=== PATIENT | female | born 1975 | race Caucasian/White ===

== ENCOUNTER 2020-08-08 10:21 | Emergency (ER) | payer OTHER, SELFPAY ==
[2020-08-08 10:29] VITALS: BP 139/78; PULSE 78; RESP 18; TEMP 36.6; O2SAT 98
--- NOTE | 2020-08-08 10:52 | ED.ABDPAIN ---
HPI - Abdominal Pain General Chief Complaint: Abdominal Pain Stated Complaint: stomach pain Time Seen by Provider: 08/08/20 10:43 Source: patient and RN notes reviewed Mode of arrival: ambulatory Limitations: no limitations History of Present Illness HPI narrative: Patient presents today complaining of history of intermittent mid to upper abdominal pain, occasionally radiating into the back. Pain is worse after eating and is sometimes accompanied by nausea after eating. She denies vomiting, diarrhea, constipation. Denies any urinary symptoms, recent fever, any additional symptoms. Currently rates her pain 04/27. MD elicited complaint: abdominal pain Related Data Home Medications Medication Instructions Recorded Confirmed No Home Medications 08/08/20 08/08/20 Allergies Allergy/AdvReac Type Severity Reaction Status Date / Time No Known Allergies Allergy Verified 07/29/13 10:32 Review of Systems Review of Systems: Narrative: CONSTITUTIONAL: Denies body aches, fever, chills, or sweats. EYES: Denies visual changes, redness, or discharge. ENT: Denies rhinorrhea, congestion, sore throat, or otalgia. CARDIOVASCULAR: Denies chest pain, palpitations, or edema. RESPIRATORY: Denies cough or dyspnea. GASTROINTESTINAL: Denies vomiting, or diarrhea. + Nausea, abdominal pain GENITOURINARY: Denies dysuria or hematuria. SKIN: Denies rash, itching, or wounds. MUSCULOSKELETAL: Denies back pain, joint pain, or myalgia. NEUROLOGIC: Denies headache, numbness, tingling, or weakness. PSYCH: Denies depression or anxiety. PMFSH Social History Social History Alcohol intake: never Gender identity (if verbalized by the patient): Female Comments At time of signature, I have reviewed and agree with nursing past medical, surgical, social and family history unless otherwise noted. Please see nursing chart for further information. There is no relevant family history pertinent to the presenting complaint Exam Narrative: Exam Narrative: GENERAL: Well-appearing, well-nourished, and in no acute distress. HEAD: Normocephalic, atraumatic. EYES: EOMI. No redness or drainage. Conjunctivae normal. ENT: Mucous membranes pink and moist. NECK: Normal AROM. CHEST: No respiratory distress. Clear to auscultation. HEART: Regular rate and rhythm. No murmur appreciated. Normal peripheral pulses. ABDOMEN: Soft, nondistended, normal active bowel sounds. -CVAT. Tenderness to periumbilical area. States uncomfortable in all 4 quadrants. MUSCULOSKELETAL: No bony tenderness. EXTREMITIES: Normal range of motion. No edema. SKIN: Warm, dry, no rash. Capillary refill normal. Normal skin turgor. NEURO: No focal deficits. Alert and oriented x3. Gait steady. PSYCH: Normal affect. No signs of depression or anxiety. Course Vital Signs Vital signs: Vital Signs Temperature 97.9 F 08/08/20 10:29 Pulse Rate 78 08/08/20 10:29 Respiratory Rate 18 08/08/20 10:29 Blood Pressure 139/78 08/08/20 10:29 Pulse Oximetry 98 08/08/20 10:29 Temperature 97.9 F 08/08/20 10:29 Pulse Rate 78 08/08/20 10:29 Respiratory Rate 18 08/08/20 10:29 Blood Pressure 139/78 08/08/20 10:29 Pulse Oximetry 98 08/08/20 10:29 Reviewed. Pt has been instructed to follow up with her PCP regarding her elevated blood pressure today. Transfer Transfered to: Martin Transfer rationale: Abdominal pain Accepting physician: HALEIGH Santiago MDM - Abdominal Pain Differential Diagnosis Differential diagnosis: Likely abdominal pain, diverticulitis, gastroenteritis and other (Cholecystitis, cholelithiasis, colitis, enteritis, gastritis) Critical Care Time Critical Care Time Critical Care Time: No Discharge Plan Discharge Clinical Impression: Abdominal pain Qualifiers: Abdominal location: periumbilical Qualified Code(s): R10.33 - Periumbilical pain Patient Disposition: [facility]
--- NOTE | 2020-08-08 10:54 | PC.NURSE ---
Talisha CELESTE called report to Martin XIE
--- NOTE | 2020-08-08 10:56 | PC.NURSE ---
Report called to Martin XIE report to Charla DESIR
== END 2020-08-08 11:02 | disposition short-term general hospital (02) ==
PROVIDERS: Emergency Provider Nurse Practitioner; PCP Emergency Medicine
DX: R10.33 Periumbilical pain (principal)
CPT/HCPCS: 99212; G0463

== ENCOUNTER 2020-08-08 11:16 | Emergency (ER) | payer OTHER, SELFPAY ==
--- NOTE | ~2020-08-08 | US_ITS ---
EXAMINATION: US right upper quadrant EXAM DATE: 08/08/2020 14:25 INDICATION: Right upper quadrant pain. TECHNIQUE: Multiple grayscale and Doppler images of the abdomen right upper quadrant were obtained (b y a technologist who performed the scan) and subsequently reviewed. There is no prior study for daniel barbosa. FINDINGS: The pancreatic head and body are normal in appearance. The pancreatic tail is not visualized. The l iver has normal echogenicity and contour. There are no focal liver lesions identified. There is no evidence of intrahepatic biliary duct dilation. Portal venous flow was seen in the hepatopedal, nor mal direction and has normal Doppler waveform. No right-sided hydronephrosis. Common bile duct measures 3 mm, which is normal. The gallbladder wall is normal in thickness, with ex pected amount of distention. No sonographic evidence of pericholecystic fluid. There is no cholelit hiases. Technologist performing exam reports patient did not demonstrate sonographic Covington's sign. Please note that this sign is less reliable in patients who have received pain medication. IMPRESSION: 1. Unremarkable abdominal ultrasound exam. Reviewed, dictated and finalized at location B.
--- NOTE | ~2020-08-08 | CT_ITS ---
EXAMINATION: CT abdomen pelvis w con DATE: 08/08/2020 15:11 INDICATION: Right upper quadrant abdominal pain. TECHNIQUE: Computed tomography (CT) of the abdomen and pelvis was performed with 100 mL Omnipaque 350 intravenous contrast. Automated exposure control and iterative reconstruction technique were employe d. The dose-length product was 649.97 mGy-cm. COMPARISON: Ultrasound abdomen 08/08/2020 FINDINGS: The visualized portions of the lung bases demonstrate mild atelectasis. No pleural effusion . The heart size is normal. No pericardial effusion. The liver, spleen, gallbladder, pancreas, adrena l glands, and kidneys are normal. There are no dilated loops of bowel. The appendix is normal. There are no pathologically enlarged lymph nodes. There is no free intraperitoneal fluid. There is a chroni c left-sided L5 pars defect. There is sclerosis of right L5 pars interarticularis, consistent with st ress reaction. There is severe lower lumbar spondylosis. IMPRESSION: 1. No etiology for the patient's symptoms. Reviewed, dictated and finalized at location A.
[2020-08-08 12:00] VITALS: BP 120/74; PULSE 73; RESP 18; TEMP 36.9; O2SAT 99
[2020-08-08 12:13] LABS: Basophils Absolute Auto 0.1 K/mm3 (0.0-0.1); Basophils Percent Auto 0.7 % (0.2-1.2); Eosinophils Absolute Auto 0.1 K/mm3 (0-0.3); Hematocrit 42.6 % (37.0-47.0); Hemoglobin 14.2 g/dL (12.0-15.0); Immature Granulocyte Absolute 0.02 K/mm3 (0.00-0.031); Immature Granulocyte Percent A 0.3 % (0-0.5); Lymphocytes Absolute Auto 2.83 K/mm3 (0.9-3.2); Lymphocytes Percent Auto 39.5 % (18.3-44.2); Mean Corpuscular HGB Conc 33.3 g/dl (32-36); Mean Corpuscular Hemoglobin 29.9 pg (26-34); Mean Corpuscular Volume 89.7 fl (80-100); Mean Platelet Volume 10.6 fl (7.4-10.4); Monocytes Absolute Auto 0.5 K/mm3 (0.1-0.6); Monocytes Percent Auto 6.3 % (2.6-8.5); Neutrophils Absolute Auto 3.8 K/mm3 (1.3-6.7); Neutrophils Percent Auto 52.2 % (45.5-73.1); Platelet Count Result 246 k/mm3 (150-375); Red Blood Count 4.75 M/mm3 (4.2-5.4); Red Cell Distribution Width 11.9 % (11.5-14.5); White Blood Count 7.2 K/mm3 (4.5-10.0)
[2020-08-08 12:24] LABS: Alanine Aminotransferase 12 U/L (4-35); Albumin Level 4.7 g/dL (3.5-5.1); Alkaline Phosphatase 59 U/L (38-126); Anion Gap 7 mmol/L (8-16); Aspartate Amino Transferase 21 U/L (14-36); Bilirubin,Total 0.3 mg/dL (0.2-1.3); Blood Urea Nitrogen 15 mg/dL (7-17); Calcium 9.9 mg/dL (8.4-10.2); Carbon Dioxide 28 mmol/L (22-30); Chloride 103 mmol/L (98-107); Estimated CRCL calculation 106 ml/min; Estimated Glomerular Filt Rate > 60; Glucose 93 mg/dL (65-105); Lipase 91 U/L (23-300); Potassium 4.5 mmol/L (3.4-5.0); Sodium 138 mmol/L (137-145)
[2020-08-08 12:48] LABS: Add Urine Microscopic? YES; Appearance Urine Clear (Clear); Bacteria Urine Trace /hpf; Bilirubin Urine Negative (Negative); Blood Urine Negative (Negative); Color Urine Yellow (Yellow); Glucose Urine UA Negative (Negative); Ketones Urine Negative (Negative); Leukocyte Esterase Ur 3+ LEU/UL (Negative); Nitrate Urine Negative (Negative); Protein Urine Negative (Negative); RBC Urine 0-2 /hpf (0-2); Squamous Epithelial Cell Urine Many /hpf (Few); Urobilinogen Urine Negative mg/dL (<2.0); WBC Urine 0-3 /hpf
[2020-08-08 13:28] VITALS: BP 138/86; PULSE 68; RESP 16; TEMP 37; O2SAT 100
--- NOTE | 2020-08-08 14:11 | ED.ABDPAIN ---
HPI - Abdominal Pain General Chief Complaint: Abdominal Pain Stated Complaint: abd pain Time Seen by Provider: 08/08/20 13:41 Source: patient Mode of arrival: ambulatory Limitations: no limitations History of Present Illness HPI narrative: This is a 45 year old female that presents to the ER for upper abdominal pain x 4 days. Pain is worse with eating. She has tried several over the counter medications with little relief. Denies fever, vomiting, dysuria, or diarrhea. Related Data Home Medications Medication Instructions Recorded Confirmed No Home Medications 08/08/20 08/08/20 Allergies Allergy/AdvReac Type Severity Reaction Status Date / Time No Known Allergies Allergy Verified 07/29/13 10:32 Review of Systems Review of Systems: Narrative: CONSTITUTIONAL: Denies fever GASTROINTESTINAL: Reports abdominal pain. Denies nausea, vomiting, or diarrhea. GENITOURINARY: Denies dysuria or hematuria. All systems reviewed & are unremarkable except as noted in HPI and below PMFSH Social History Social History Alcohol intake: never Gender identity (if verbalized by the patient): Female Exam Narrative: Exam Narrative: GENERAL: Well-appearing, well-nourished, and in no acute distress. HEAD: Normocephalic, atraumatic. EYES: EOMI. CHEST: Clear to auscultation. No respiratory distress. No wheezes rales or rhonchi HEART: Regular rate and rhythm. No murmur heard. Normal peripheral pulses. ABDOMEN: Soft, nondistended, normal active bowel sounds. Tender to palpation in the upper abdomen, without guarding. No CVA tenderness EXTREMITIES: Normal range of motion. No edema. SKIN: Warm, dry, no rash. NEURO: No focal deficits. Alert and oriented x3. PSYCH: Normal mood and affect Course Vital Signs Vital signs: Vital Signs Temperature 98.4 F 08/08/20 12:00 Pulse Rate 73 08/08/20 12:00 Respiratory Rate 18 08/08/20 12:00 Blood Pressure 120/74 08/08/20 12:00 Pulse Oximetry 99 08/08/20 12:00 Temperature 98.6 F 08/08/20 13:28 Pulse Rate 80 08/08/20 15:57 Respiratory Rate 14 08/08/20 15:57 Blood Pressure 124/88 08/08/20 15:57 Pulse Oximetry 98 08/08/20 15:57 MDM - Abdominal Pain MDM Narrative Medical decision making narrative: Patient presents to the emergency department for upper abdominal pain times 4 days. She is afebrile and nontoxic-appearing. Vitals are normal. CBC and metabolic panel without acute findings. Lipase is normal. UA without evidence of infection. Right upper quadrant ultrasound and CT scan abdomen and pelvis are without acute findings. Patient was updated on case findings. She is stable and felt appropriate for further outpatient evaluation. She is to follow-up with her primary care doctor. She will be given GI cooperative extension agent as needed as well. She was given warnings to return to the ER Lab Data Attestation: I reviewed the patient's lab results. Result diagrams: 08/08/20 12:03 08/08/20 12:03 Labs: Lab Results 08/08/20 08/08/20 08/08/20 Range/Units 12:03 12:03 12:10 WBC 7.2 (4.5-10.0) K/mm3 RBC 4.75 (4.2-5.4) M/mm3 Hgb 14.2 (12.0-15.0) g/dL Hct 42.6 (37.0-47.0) % MCV 89.7 (80-100) fl MCH 29.9 (26-34) pg MCHC 33.3 (32-36) g/dl RDW 11.9 (11.5-14.5) % Plt Count 246 (150-375) k/mm3 MPV 10.6 H (7.4-10.4) fl Immature Gran % (Auto) 0.3 (0-0.5) % Neut % (Auto) 52.2 (45.5-73.1) % Lymph % (Auto) 39.5 (18.3-44.2) % Ness % (Auto) 6.3 (2.6-8.5) % Eos % (Auto) 1.0 (0-4.4) % Baso % (Auto) 0.7 (0.2-1.2) % Lymph # (Auto) 2.83 (0.9-3.2) K/mm3 Ness # (Auto) 0.5 (0.1-0.6) K/mm3 Eos # (Auto) 0.1 (0-0.3) K/mm3 Baso # (Auto) 0.1 (0.0-0.1) K/mm3 Abs Immat Gran (auto) 0.02 (0.00-0.031) K/mm3 Absolute Neuts (auto) 3.8 (1.3-6.7) K/mm3 Absolute Nucleated RBC 0.0 (0.0-0.012) K/mm3 Nucleated R
[2020-08-08] MEDS: SODIUM CHLORIDE 0.9% IV 1,000 ML 999 ML IV CONT (15:29)
[2020-08-08] MEDS: PANTOPRAZOLE SODIUM IV 40 MG VIAL IV PUSH (15:29)
[2020-08-08 15:57] VITALS: BP 124/88; PULSE 80; RESP 14; O2SAT 98
== END 2020-08-08 16:45 | disposition home or self-care (01) ==
PROVIDERS: Emergency Provider Emergency Medicine; PCP Emergency Medicine
DX: R10.10 Upper abdominal pain, unspecified (principal)
CPT/HCPCS: 36415; 74177; 76705; 80053; 81001; 81025; 83690; 85025; 96365; 96375; 99284; C9113; J0131; J7030; Q9967

== ENCOUNTER → 2022-04-13 10:11 | Outpatient (CLI) | payer OTHER, SELFPAY ==
--- NOTE | ~2022-04-13 | MM_ITS ---
EXAMINATION: MM screening julianna BI w ousmane HISTORY: Screening mammogram TECHNIQUE: Craniocaudal and mediolateral oblique 3-D tomosynthesis images were obtained and synthetic 2-D images were generated. CAD analysis was submitted and interpreted. COMPARISON: No prior mammogram is available for comparison at this institution. BREAST PARENCHYMAL COMPOSITION: There are scattered areas of fibroglandular density. FINDINGS: Right breast: There is focal asymmetry and architectural distortion anteriorly in the upper outer rig ht breast. Diagnostic right mammogram and right breast ultrasound examination are recommended. Questionable architectural distortion at mid depth in the upper outer left breast.. Diagnostic left m ammogram and left breast ultrasound examination are recommended. IMPRESSION: 1. Asymmetric density and architectural distortion, upper outer right breast; diagnostic right mammog tosha and right breast ultrasound examination are recommended. 2. Subtle architectural distortion may be present in the upper outer left breast. Diagnostic left julianna mogram and left breast ultrasound examination are recommended. BI-RADS Category 0: Incomplete: Needs additional imaging evaluation. Reviewed, dictated and finalized at location A. IMPRESSION: 1. Asymmetric density and architectural distortion, upper outer right breast; d iagnostic right mammogram and right breast ultrasound examination are recommend ed. 2. Subtle architectural distortion may be present in the upper outer left breas t. Diagnostic left mammogram and left breast ultrasound examination are recomme nded. BI-RADS Category 0: Incomplete: Needs additional imaging evaluation.
== END ==
PROVIDERS: PCP Emergency Medicine; Visit Provider Emergency Medicine
DX: Z12.31 Encounter for screening mammogram for malignant neoplasm of breast (principal); R92.8 Other abnormal and inconclusive findings on diagnostic imaging of breast
CPT/HCPCS: 77063; 77067

== ENCOUNTER 2022-05-07 11:24 | Outpatient (CLI) | payer OTHER, SELFPAY ==
--- NOTE | ~2022-05-07 | MMUS_ITS ---
EXAMINATION: MM diagnostic julianna BI w ousmane, US breast BI limited HISTORY: Possible architectural distortion in upper outer quadrants of the breasts TECHNIQUE: Additional 3-D tomosynthesis images of both breasts were performed and synthetic 2-D image s were generated. CAD analysis was submitted and interpreted. High resolution bilateral upper outer q uadrant breast ultrasound was performed. COMPARISON: 04/13/2022 bilateral screening mammogram FINDINGS: MAMMOGRAPHIC FINDINGS: No reproducible mass or architectural distortion is detected. ULTRASOUND: No suspicious mass or shadowing is noted in the upper outer quadrant of either breast. IMPRESSION: 1. No mammographic evidence of malignancy 2. Routine mammographic screening is recommended BI-RADS Category 1: Negative Reviewed, dictated and finalized at location A. IMPRESSION: 1. No mammographic evidence of malignancy 2. Routine mammographic screening is recommended BI-RADS Category 1: Negative
== END 2022-05-07 11:25 | disposition home or self-care (01) ==
LOC: ANHIMG 11:25
PROVIDERS: PCP Emergency Medicine; Visit Provider Emergency Medicine
DX: R92.8 Other abnormal and inconclusive findings on diagnostic imaging of breast (principal); N64.89 Other specified disorders of breast
CPT/HCPCS: 76642; 77062; 77066; G0279

== ENCOUNTER 2022-08-17 10:21 | Outpatient (CLI) | payer OTHER, SELFPAY ==
--- NOTE | ~2022-08-17 | XR_ITS ---
EXAMINATION: XR foot LT 2V DATE: 08/17/2022 10:43 INDICATION: Plantar fascial fibromatosis. Heel pain. TECHNIQUE: 2 views of left foot were obtained. COMPARISON: None. FINDINGS: Bone alignment is normal. No fracture. There is mild osteoarthritis of first metatarsophala ngeal joint, talonavicular joint, and some of the interphalangeal joints. There is an enthesophyte at plantar aspect of calcaneal tuberosity. IMPRESSION: 1. Mild polyarticular osteoarthritis. Reviewed, dictated and finalized at location A.
== END 2022-08-17 10:22 | disposition home or self-care (01) ==
PROVIDERS: PCP Emergency Medicine; Visit Provider Emergency Medicine
DX: M72.2 Plantar fascial fibromatosis (principal); M19.072 Primary osteoarthritis, left ankle and foot
CPT/HCPCS: 73620

== ENCOUNTER → 2023-08-12 11:05 | Outpatient (CLI) | payer OTHER, SELFPAY ==
--- NOTE | ~2023-08-12 | MM_ITS ---
EXAMINATION: MM screening julianna BI w ousmane HISTORY: Screening mammogram TECHNIQUE: Craniocaudal and mediolateral oblique 3-D tomosynthesis images were obtained and synthetic 2-D images were generated. CAD analysis was submitted and interpreted. COMPARISON: 05/12 2022 diagnostic bilateral mammogram and bilateral Limited breast ultrasound 04/13/2022, 02/26/2014 bilateral screening mammogram examinations BREAST PARENCHYMAL COMPOSITION: There are scattered areas of fibroglandular density. FINDINGS: Chronic stable mild fibroglandular asymmetry since 02/26/2014 There is no evidence of suspic ious mass, calcification, or architectural distortion to suggest malignancy in either breast. There h as been no suspicious interval change. IMPRESSION: 1. No mammographic evidence of malignancy. 2. Recommend routine screening mammography in one year. BI-RADS Category 1: Negative Reviewed, dictated and finalized at location A.
== END ==
PROVIDERS: PCP Emergency Medicine; Visit Provider Emergency Medicine
DX: Z12.31 Encounter for screening mammogram for malignant neoplasm of breast (principal)
CPT/HCPCS: 77063; 77067

== ENCOUNTER 2024-02-05 10:46 | Outpatient (CLI) | payer OTHER, SELFPAY ==
--- NOTE | ~2024-02-05 | MR_ITS ---
MRI of the right knee Clinical history: Pain Technique: Coronal proton density and proton density-weighted images, sagittal proton-density and T2 fat-sat images, and axial proton-density fat-saturated images were acquired. Findings: Anterior and posterior cruciate ligaments are intact. Medial collateral ligament and the la teral collateral ligament complex are intact. Popliteus tendon is intact. Medial and lateral menisci are intact, without evidence of tear. Articular cartilage in the medial and lateral compartments is well preserved. There is diffuse modera te to high-grade chondromalacia patella, especially over the lateral facet. Femoral trochlear cartila ge is intact. Extensor mechanism is intact. No significant joint effusion. Small Ariza cyst present. Impression: Extensive high-grade chondromalacia patella. Small Ariza's cyst. Reviewed, dictated and finalized at location . Impression: Extensive high-grade chondromalacia patella. Small Ariza's cyst.
== END 2024-02-05 10:47 ==
LOC: MICIMG 10:47
PROVIDERS: PCP Emergency Medicine; Visit Provider Nurse Practitioner Family
DX: M25.561 Pain in right knee (principal); M94.261 Chondromalacia, right knee; M71.21 Synovial cyst of popliteal space [Baker], right knee
CPT/HCPCS: 73721

== ENCOUNTER 2024-02-17 09:47 | Outpatient (CLI) | payer OTHER, SELFPAY ==
--- NOTE | 2024-02-17 09:58 | ECG_ITS ---
Measurements Intervals [place] Rate: 74 P: -5 IA: 123 QRS: 2 QRSD: 93 T: 16 QT: 371 QTc: 414 Interpretive Statements SINUS RHYTHM POOR R-WAVE PROGRESSION NONSPECIFIC T-WAVE AVERAGE ABNORMAL ECG WARNING: DATA QUALITY MAY AFFECT INTERPRETATION NO PREVIOUS ECG AVAILABLE FOR COMPARISON Electronically Signed On 02-17-2024 13:11:09 CDT by Masoud Palacios M.D.
== END 2024-02-17 09:48 | disposition home or self-care (01) ==
LOC: ANHSURGERY 09:50
PROVIDERS: PCP Emergency Medicine; Visit Provider Orthopaedic Surgery
DX: I10 Essential (primary) hypertension (principal); Z01.818 Encounter for other preprocedural examination; R94.31 Abnormal electrocardiogram [ECG] [EKG]
CPT/HCPCS: 93005

== ENCOUNTER 2024-02-26 01:02 | Day surgery (SDC) | payer OTHER, SELFPAY ==
[2024-02-13 13:48] VITALS: BMI 38.2
--- NOTE | 2024-02-13 13:52 | PC.NURSE ---
Report to the Outpatient Waiting Room, entrance under the green pavilion located off [facility], at time 11:00 on date 02/26/24. Planned Procedure Time: 1:00. Time changes happen often and if your time is changed the preop area will call you the afternoon before. - You and your visitor will be asked to self-screen and do not enter if you have any COVID symptoms. - A mask is optional within the hospital at this time. Patients may have clear liquids (water, carbonated beverages, clear teas, apple juice) until 3 hours prior to surgery (10:00) with a maximum of 20 ounces. - No food from midnight until time of surgery Take the following medications with a SIP of water the morning of surgery: SERTRALINE DO NOT STOP ANY OF YOUR OTHER PRESCRIPTION MEDICATIONS PRIOR TO SURGERY ?EXCEPT THE FOLLOWING Medications to discontinue per physician: VITAMINS Date to take last dose: 02/22/24 Please no make-up, nail croatian, hairspray, perfume, deodorant, or body powder the day of surgery. No jewelry (including any body piercings) or valuables the day of surgery, leave them at home. Please take a shower or bath the night before, or the morning of, surgery with an antibacterial soap. Wear comfortable, loose fitting clothing. - Jewelry must be removed prior to entering the operating room. Rings and piercings that are not removed may be cut off. - The hospital will not accept responsibility for valuables. - Please leave all valuables, including medications, at home the day of surgery. If you are going home after surgery, a licensed special needs bus driver must drive you home. - NO public transportation without another adult if you receive anesthesia. - We recommend that an adult stay with you for 24 hours following discharge. - We also recommend that you do not drive, make important decision, drink alcoholic beverages, or take any drugs that were not prescribed by your health care provider for at least 24 hours after your discharge time. Follow any additional instructions given to you from your surgeon. If you or anyone in your household have experienced Covid symptoms in the past week, please notify your surgeon or the nurse liaison at the phone number below for possible testing. Telephone instructions given to LORI SMITH and asked if any additional questions and then verbalized understanding. Patient advised to call surgeon office or pre surgery nurse liaison [phone] if any additional questions.
[2024-02-26] VITALS (8 sets, daily range): BP systolic 114–146; BP diastolic 54–75; PULSE 71–81; RESP 12–16; TEMP 36.6–36.8; O2SAT 97–100
--- NOTE | 2024-02-26 07:11 | WPDHPUPDATE1 ---
History and Physical Update Update Date/Time: 02/26/24 07:11 History and Physical has been reviewed, including an updated exam of the patient. There are NO changes in the patient's condition. Risks, benefits, and alternatives have been discussed and questions answered. Patient agrees to proceed with procedure.
[2024-02-26] MEDS: ACETAMINOPHEN 500 MG TABLET 1000 MG PO (09:12)
[2024-02-26] MEDS: CELECOXIB 200 MG CAPSULE PO (09:19)
[2024-02-26] MEDS: LACTATED RINGERS 1,000 ML 30 ML IV CONT ×2 (09:22→12:29)
--- NOTE | 2024-02-26 09:38 | WPDANESEPPF ---
Anes - Initial Pre Proc Eval Procedure: Operation Date: 02/26/24 10:30 Proposed Procedures p Right Knee Arthroscopy, with Chondroplasty and Lateral Release, Proceed As Indicated - Efrain Hernandez MD Date/Time: 02/26/24 09:38 Surgeon: Efrain Hernandez MD Pre Op Diagnosis: right knee chondromalacia with Patient Data Age: 48 Gender: F Height: 1.65 m Weight: 103.5 kg Last Vital Signs Temp 36.8 C 02/26/24 09:25 Pulse 73 02/26/24 09:25 Resp 16 02/26/24 09:25 BP 146/75 H 02/26/24 09:25 Pulse Ox 97 02/26/24 09:25 O2 Del Method Room Air 02/26/24 09:25 Allergies Allergy/AdvReac Type Severity Reaction Status Date / Time No Known Allergies Allergy Verified 02/26/24 08:52 Home Medications Medication Instructions Recorded Confirmed Type pantoprazole 40 mg tablet,delayed See Rx Instructions .Route 11/01/23 02/26/24 Rx release .COMPLEX #90 tabs sertraline 50 mg tablet See Rx Instructions .Route 11/01/23 02/26/24 Rx .COMPLEX #90 tabs losartan 100 mg tablet 100 mg PO DAILY #90 tabs 11/20/23 02/26/24 Rx tolterodine 2 mg capsule,extended See Rx Instructions .Route 11/28/23 02/26/24 Rx release 24 hr .COMPLEX #90 caps cholecalciferol (vitamin D3) 25 25 mcg PO DAILY 02/13/24 02/26/24 History mcg (1,000 unit) tablet (Vitamin D3) chlorhexidine gluconate 4 % 1 applic topical ONCE #237 mL 02/19/24 Rx topical liquid (Hibiclens) Patient hx anesthesia problems: none Family hx anesthesia problems: none Results Review: All pre-operative results and documents have been reviewed as part of the pre-operative evaluation. [facility] Past Medical History Medical History Abdominal pain Back pain Chondromalacia Depression Elevated blood pressure reading in office without diagnosis of hypertension Fatigue Foot pain GERD (gastroesophageal reflux disease) Numbness and tingling in left hand Other screening mammogram Right knee pain Sinusitis Wrist pain, left Surgical History Surgical History (Updated 02/26/24 @ 09:39 by Dimitri Rodríguez MD) H/O: hysterectomy Social History Social History Smoking status: Never smoker Alcohol intake: never Substance use: never Substance use type: does not use Do You Feel Safe in your Home?: Yes Lack of Transportation: No Lack of Food: Never True Current Housing: I Have Housing Concerned About Future Housing: No Difficulty Paying Gas/Electric Bills: No Difficulty Paying for Meds: No Currently Unemployed: No Education: Bachelor's Degree Difficulty w/ Childcare or Family Care: No Living arrangements: with family Gender identity (if verbalized by the patient): Female Spiritual care concerns: No Anes - Eval Final PreProcedure Day of Procedure 02/26/24 09:38 Patient weight: obese Heart: regular rate and rhythm Lungs: clear to auscultation Airway: Mallampati scale class III Neurological: alert and oriented Last oral intake: >/= 8 hours ASA classification: III Emergent: no Anesthetic plan: proceed Anesthesia type and monitoring: general LMA and standard monitoring Results Review: All pre-operative results and documents have been reviewed as part of the pre-operative evaluation. Informed Consent: The patient's anesthetic plan and its attendant risks and benefits were discussed with the patient/family/POA. Questions were solicited and answers provided to the satisfaction of the patient/family/POA.
[2024-02-26] MEDS: ceFAZolin 2 GM/D5W 50 ML 2 GM/50 ML BAG IVPB (11:07)
[2024-02-26] MEDS: BUPivacaine HCL 0.5% 10 ML AMP 30 ML INFILTRATE (11:46)
--- NOTE | 2024-02-26 12:57 | W.PM.PROC2 ---
Procedure Note - Detailed Date of Procedure 02/26/24 Pre-op Diagnosis right knee chondromalacia with Post-op Diagnosis Other (MEDIAL MENISCUS TEAR) Procedure Performed RIGHT KNEE SCOPE Surgeon Efrain Hernandez MD Anesthesia General Description of Procedure PATIENT WAS TAKEN TO THE OR. RIGHT LEG WAS PREPPED AND DRAPED STERILE. TROCARS WERE PLACED IN THE USUAL FASHION. CAMERA WAS INTRODUCED. THERE WAS SEVERE CHONDROMALACIA TO THE PATELLA FEMORAL JOINT. THERE WAS A LOT OF SYNOVITIS IN ALL COMPARTMENTS. THE MEDIAL COMPARTMENT SHOWED CHONDROMALACIA TO THE MEDIAL FEMORAL CONDYLE WITH GRADE 3 CHONDROMALACIA. A SHAVER WAS USED TO PREFORM A CHONDROPLASTY. THERE WAS A SMALL COMPLEX MEDIAL MENISCUS TEAR. THE TEAR WAS RESECTED WITH A BITER AND A SHAVER DOWN TO A SMOOTH BASE. THE ACL WAS INTACT. THE LATERAL MENISCUS WAS NOT TORN. THE LATERAL COMPARTMENT HAD NO CHONDROMALACIA. THE PATELLO FEMORAL JOINT UNDERWENT CHONDROPLASTY. THERE WAS GRADE 3 CHONDROMALACIA IN MOST OF THE TROCHLEA AND PART OF THE PATELLA. SYNOVECTOMY WAS PREFORMED IN THE SUPERIOR MEDIAL COMPARTMENT. THE PATELLA WAS TRACKING WITH OUT TILT. THE WOUNDS WERE APPROXIMATED WITH 4.0 NYLON. STERILE DRESSING WAS APPLIED. PATIENT WAS EXTUBATED. Estimated Blood Loss 5 Complications No immediate complications Condition Stable Disposition PACU
[2024-02-26] MEDS: fentaNYL CITRATE INJ (*CRX) 100 MCG/2 ML VIAL 25 MCG IV PUSH ×3 (13:02→13:32)
[2024-02-26] MEDS: oxyCODONE HCL (*CRX) 5 MG TAB IR PO (13:32)
[2024-02-26] MEDS: ONDANSETRON HCL ODT 4 MG TABLET PO (14:06)
== END 2024-02-26 14:06 | disposition home or self-care (01) ==
PROVIDERS: PCP Emergency Medicine; Visit Provider Orthopaedic Surgery
PROC: (CPT 29870; principal; 2024-02-26 10:30)
DX: M23.331 Other meniscus derangements, other medial meniscus, right knee (principal); M22.41 Chondromalacia patellae, right knee; M65.861 Other synovitis and tenosynovitis, right lower leg; K21.9 Gastro-esophageal reflux disease without esophagitis; F32.A Depression, unspecified; E66.9 Obesity, unspecified; Z68.38 Body mass index [BMI] 38.0-38.9, adult
CPT/HCPCS: 29881; A9270; J0690; J1100; J2250; J2405; J2704; J3010; J7120

== ENCOUNTER 2024-07-08 15:18 | Outpatient (CLI) | payer OTHER, SELFPAY ==
--- NOTE | ~2024-07-08 | XR_ITS ---
EXAMINATION: XR elbow RT 2V DATE: 07/08/2024 15:40 INDICATION: Right elbow pain. TECHNIQUE: 2 views of right elbow were obtained. COMPARISON: None. FINDINGS: Alignment is normal. No fracture. Joint spaces are normal. No elbow joint effusion. IMPRESSION: 1. No fracture. Reviewed, dictated and finalized at location A. IMPRESSION: 1. No fracture.
== END 2024-07-08 15:19 ==
PROVIDERS: PCP Emergency Medicine; Visit Provider Emergency Medicine
DX: M25.521 Pain in right elbow (principal)
CPT/HCPCS: 73070

== ENCOUNTER 2024-08-03 13:02 | Outpatient (CLI) | payer OTHER, SELFPAY ==
--- NOTE | ~2024-08-03 | MR_ITS ---
EXAMINATION: MR elbow RT wo con DATE: 08/03/2024 14:36 INDICATION: Right elbow pain TECHNIQUE: Magnetic resonance imaging (MRI) of the right elbow was performed without intravenous cont rast. Sequences included coronal, axial, and sagittal PD-weighted FS FSE and coronal, axial, and sagi ttal PD-weighted FSE. COMPARISON: None FINDINGS: Osseous/other: Normal alignment. Normal marrow signal with no marrow edema, fracture, osteochondral lesion or patho logic marrow replacing process. Minimal osteoarthritis with minimal nonuniform partial-thickness cart ilage loss with smooth chondral surface at the proximal radioulnar and radiocapitellar articulations. Tendons: Triceps, biceps brachii and brachialis tendons are normal. Common flexor tendon wad is normal. Mild tendinopathy with 3 x 3 mm partial-thickness tear at the lateral epicondylar origin of the common ext ensor tendon wad is normal. Ligaments: The medial and lateral collateral ligament complexes are normal. Cubital tunnel: Cubital tunnel is unremarkable with normal signal and caliber of the ulnar nerve. Fluid: Physiologic amount of fluid the elbow joint. IMPRESSION: 1. Mild tendinopathy with small partial-thickness tear at the lateral epicondylar origin of the commo n extensor tendon wad. 2. 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 Reviewed, dictated and finalized at location B. IMPRESSION: 1. Mild tendinopathy with small partial-thickness tear at the lateral epicondyl ar origin of the common extensor tendon wad. 2. 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
== END 2024-08-03 13:03 | disposition home or self-care (01) ==
LOC: MICIMG 13:03
PROVIDERS: PCP Emergency Medicine; Visit Provider Emergency Medicine
DX: M25.521 Pain in right elbow (principal)
CPT/HCPCS: 73221

== ENCOUNTER 2024-08-06 11:51 | Emergency (ER) | payer OTHER, SELFPAY ==
--- NOTE | ~2024-08-06 | CT_ITS ---
Non-contrast Head CT History: Head injury Technique: Axial non-contrast imaging of the brain was performed. Dose reduction technique was used on this scan by utilizing automated exposure control and iterative reconstruction technique. The dose -length product (DLP) was 605.33 mGy-cm. Findings: There is no evidence of intracranial hemorrhage, mass lesion, or acute infarct. Brain par enchyma appears normal. The ventricles and subarachnoid spaces are normal in size. The calvarium ap pears normal. The visualized paranasal sinuses and mastoid air cells are clear. Impression: No significant abnormality seen. Reviewed, dictated and finalized at location . Impression: No significant abnormality seen.
[2024-08-06 11:57] VITALS: BP 152/105; PULSE 79; RESP 16; TEMP 36.3; O2SAT 97
[2024-08-06] MEDS: ONDANSETRON HCL ODT 4 MG TABLET PO (13:52)
[2024-08-06] MEDS: HYDROcodone/acetaminophen (*CRX) 5-325 MG TABLET 1 TAB PO (13:52)
--- NOTE | 2024-08-06 15:04 | PC.NURSE ---
reports nausea resolved
--- NOTE | 2024-08-06 15:46 | ED.HEATRA ---
HPI - Head Injury General Chief complaint: Head Injury Stated complaint: HI, ROWELL, N/V Time Seen by Provider: 08/06/24 12:13 History of Present Illness HPI Narrative: 49-year-old female presenting to the emergency department for headache with some nauseousness without vomiting. She states she struck her head yesterday while she was at work pretty hard against a desk that was sharp. She states she has had a small hematoma in her scalp that is tender to the touch. Not any blood thinner medications and notes no history of seizure disorder or closed head injuries in the past. She states she went home feeling okay after working in had developed a weird headache in the left frontal head associated with intermittent blurry vision that slowly resolved followed by persistent nausea with several episodes of emesis. She states the headache got worse today's prompting her to seek evaluation in the emergency department. Denies any present visual changes, blurred vision, nystagmus, mental status changes, ataxia, weakness, fatigue or sensory/motor deficits. Was otherwise in her normal state of health. Denies any other history or present injuries. Related Data Home Medications Medication Instructions Recorded Confirmed cholecalciferol (vitamin D3) 25 25 mcg PO DAILY 02/13/24 05/14/24 mcg (1,000 unit) tablet (Vitamin D3) Allergies Allergy/AdvReac Type Severity Reaction Status Date / Time No Known Allergies Allergy Verified 07/08/24 14:48 Review of Systems Review of Systems: As reviewed above in HPI [facility] Past Medical History Medical History Abdominal pain Back pain Chondromalacia Depression Depression Elevated blood pressure reading in office without diagnosis of hypertension Examination, physical, employee Fatigue Foot pain GERD (gastroesophageal reflux disease) Numbness and tingling in left hand Other screening mammogram Right knee pain Sinusitis Urinary incontinence Wrist pain, left Surgical History Surgical History H/O: hysterectomy Social History Social History Smoking status: Never smoker Alcohol intake: never Substance use: never Substance use type: does not use Do You Feel Safe in your Home?: Yes Lack of Transportation: No Lack of Food: Never True Current Housing: I Have Housing Concerned About Future Housing: No Difficulty Paying Gas/Electric Bills: No Difficulty Paying for Meds: No Currently Unemployed: No Education: Bachelor's Degree Difficulty w/ Childcare or Family Care: No Living arrangements: with family Gender identity (if verbalized by the patient): Female Spiritual care concerns: No Exam Narrative: GENERAL: [Well-appearing, well-nourished, and in no acute distress.] HEAD: [Normocephalic, atraumatic.] EYES: [PERRLA and EOMI.] ENT: Nares clear, no rhinorrhea or epistaxis. Mucous membranes moist. NECK: Supple. CHEST: [Clear to auscultation. No respiratory distress.] HEART: [Regular rate and rhythm]. No murmur heard. [Normal peripheral pulses.] ABDOMEN: [Soft, nondistended], [nontender], [No rigidity or guarding] EXTREMITIES: Normal range of motion. [No edema.] SKIN: Warm, dry, no rash. NEURO: [No focal deficits]. Alert and oriented [x3.] No ataxia, normal strength and sensation throughout both upper lower extremities. Normal gait. PSYCH: [Normal mood and affect.] Course Vital Signs Vital signs: Vital Signs Temperature 36.3 C L 08/06/24 11:57 Pulse Rate 79 08/06/24 11:57 Respiratory Rate 16 08/06/24 11:57 Blood Pressure 152/105 H 08/06/24 11:57 Pulse Oximetry 97 08/06/24 11:57 Oxygen Delivery Room Air 08/06/24 11:57 Temperature 36.3 C L 08/06/24 11:57 Pulse Rate 79 08/06/24 11:57 Respiratory Rate 16 08/06/24 11:57 Bloo
== END 2024-08-06 15:58 | disposition home or self-care (01) ==
PROVIDERS: Emergency Provider Student in an Organized Health Care Education/Training Program; PCP Emergency Medicine
DX: S06.0X0A Concussion without loss of consciousness, initial encounter (principal); K21.9 Gastro-esophageal reflux disease without esophagitis; R32 Unspecified urinary incontinence; Z90.710 Acquired absence of both cervix and uterus; W22.8XXA Striking against or struck by other objects, initial encounter
CPT/HCPCS: 70450; 99284; A9270

== ENCOUNTER 2024-12-16 14:13 | Emergency (ER) | payer OTHER, SELFPAY ==
[2024-12-16 14:23] VITALS: BP 136/87; PULSE 77; RESP 18; TEMP 36.5; O2SAT 97
--- NOTE | 2024-12-16 14:29 | ED_ITS ---
HPI - Skin/Abscess/Foreign Bdy General Chief complaint: Skin/Abscess/Foreign Body Stated complaint: Bug bite/rash Time Seen by Provider: 12/16/24 14:29 Source: patient, RN notes reviewed and old records reviewed Mode of arrival: ambulatory Limitations: no limitations History of Present Illness HPI narrative: patient presents with what she believes to be an insect bite on her left upper arm. She reports that she noticed an itchy bump on Saturday, it has been increasing in size. Patient has been using topical Benadryl, but symptoms are worsening. She is now complaining of generalized itchy rash to most of her left arm. She denies all other complaints. She is not in any distress Related Data Home Medications ?Medication ?Instructions ?Recorded ?Confirmed ?Last Taken ?Type cholecalciferol (vitamin D3) 25 25 mcg PO DAILY 02/13/24 08/17/24 02/21/24 History mcg (1,000 unit) tablet (Vitamin D3) Allergies Allergy/AdvReac Type Severity Reaction Status Date / Time No Known Allergies Allergy Verified 12/16/24 14:25 Review of Systems 2 Review of Systems: All systems reviewed & are unremarkable except as noted in HPI and below Constitutional: Constitutional: Reports no additional constitutional complaints ENT: Reports system reviewed and no additional complaints, except as documented Cardiovascular: Cardiovascular: Reports no additional cardiovascular complaints Respiratory: Respiratory: Reports no additional respiratory complaints Gastrointestinal: Gastrointestinal: Reports no additional gastrointestinal complaints Integumentary/Breasts: Skin/Breast: Reports system reviewed and no additional complaints, except as docu, Reports pruritus and Reports lesions PMFSH Past Medical History Medical History Abdominal pain Back pain Chondromalacia Depression Depression Elevated blood pressure reading in office without diagnosis of hypertension Examination, physical, employee Fatigue Foot pain GERD (gastroesophageal reflux disease) Numbness and tingling in left hand Other screening mammogram Right knee pain Sinusitis Urinary incontinence Wrist pain, left Surgical History Surgical History H/O: hysterectomy Social History Social History Smoking status: Never smoker Alcohol intake: never Substance use: never Substance use type: does not use Do You Feel Safe in your Home?: Yes Lack of Transportation: No Lack of Food: Never True Current Housing: I Have Housing Concerned About Future Housing: No Difficulty Paying Gas/Electric Bills: No Difficulty Paying for Meds: No Currently Unemployed: No Education: Bachelor's Degree Difficulty w/ Childcare or Family Care: No Living arrangements: with family Gender identity (if verbalized by the patient): Female Spiritual care concerns: No Comments At the time of my signature, I reviewed and agree with the nursing past medical, surgical, social, and family history. There is no relevant family history pertinent to the patient complaint. Exam 2 Const: General: cooperative, no acute distress, alert and awake O rientation/consciousness: oriented to person, oriented to place and oriented to time HENMT: Head: normal to inspection Resp: Effort & Inspection: normal respiratory effort and able to speak in complete sentences Auscultation: clear to auscultation bilaterally, no crackles, no rales, no rhonchi and no wheezes Cardio: Palpation: normal PMI Rate: regular rate Rhythm: regular rhythm Heart sounds: S1 normal heart sound present and S2 normal heart sound present Skin: Rashes: rashes noted ( nearly all of left arm) maculopapular rash left Full body images: 1. 2 cm x 1 cm erythematous area with associated warmth and induration Neuro: General: oriented to person, oriented to place and oriented to time Cranial nerves: Yes CN's II-XII intact bilaterally Psych: Appearance: grossly normal Thought process: Normal thought process present Insight: Good insight present (Psych) Judgement: Good judgement present (Psych) Course Course Level of Care: Express Care Visit Vital Signs Vital signs: Vital Signs Temperature 97.7 F 12/16/24 14:23 Pulse Rate 77 12/16/24 14:23 Respiratory Rate 18 12/16/24 14:23 Blood Pressure 136/87 12/16/24 14:23 Pulse Oximetry 97 12/16/24 14:23 Oxygen Delivery Room Air 12/16/24 14:23 Temperature 97.7 F 12/16/24 14:23 Pulse Rate 77 12/16/24 14:23 Respiratory Rate 18 12/16/24 14:23 Blood Pressure 136/87 12/16/24 14:23 Pulse Oximetry 97 12/16/24 14:23 Oxygen Delivery Room Air 12/16/24 14:23 Reviewed MDM - Skin/Abscess/Foreign Bdy MDM Narrative Medical decision making narrative: patient with what appears to be an infected insect bite to left upper arm, also appears to have some element allergic reaction. Continue Benadryl, start doxycycline, start prednisone. Emergency department precautions discussed. Discharge instructions reviewed with patient, as well as provided in writing per nursing staff. The instructions also include specific and strict return/GO TO THE ER as well as f/u information. All questions have been answered, and the patient deny any further questions with discharge and discharge plan. Some parts of this dictation were generated by voice recognition software and may contain typographical and/or grammatical inaccuracies. Differential Diagnosis Differential diagnosis: Likely cellulitis, insect bites and contact dermatitis Medical Records Attestation: I reviewed the patient's medical records. Discharge Plan Discharge Clinical Impression: Infected insect bite Qualifiers: Encounter type: initial encounter Qualified Code(s): W57.XXXA - Bitten or stung by nonvenomous insect and other nonvenomous arthropods, initial encounter Patient Disposition: Home, Self-Care Condition: Stable Instructions: Antibiotic Form, Cellulitis (ED) Additional Instructions: use medications as prescribed. Follow with primary care provider. Emergency department for new or worse symptoms Patient Language: Hungarian Prescriptions: New doxycycline hyclate 100 mg capsule 100 mg PO BID Qty: 20 0RF prednisone 50 mg tablet 50 mg PO DAILY Qty: 5 0RF No Action cholecalciferol (vitamin D3) [Vitamin D3] 25 mcg (1,000 unit) Tablet 25 mcg PO DAILY acetaminophen [Tylenol Extra Strength] 500 mg tablet 1,000 mg PO Q6H PRN (Reason: pain) Qty: 30 0RF ondansetron 4 mg tablet,disintegrating 4 mg PO Q8H PRN (Reason: nausea and vomiting) Qty: 10 0RF tolterodine 2 mg capsule,extended release 24hr See Rx Instructions .ROUTE .COMPLEX Qty: 90 2RF Dose Instruction: TAKE 1 CAPSULE BY MOUTH DAILY Rx Instructions: TAKE 1 CAPSULE BY MOUTH DAILY pantoprazole 40 mg tablet,delayed release (DR/EC) See Rx Instructions .ROUTE .COMPLEX Qty: 90 2RF Dose Instruction: TAKE 1 TABLET BY MOUTH EVERY DAY Rx Instructions: TAKE 1 TABLET BY MOUTH EVERY DAY sertraline 50 mg tablet See Rx Instructions .ROUTE .COMPLEX Qty: 90 2RF Dose Instruction: TAKE 1 TABLET BY MOUTH DAILY Rx Instructions: TAKE 1 TABLET BY MOUTH DAILY losartan 100 mg tablet See Rx Instructions .ROUTE .COMPLEX Qty: 90 2RF Dose Instruction: TAKE 1 TABLET BY MOUTH DAILY Rx Instructions: TAKE 1 TABLET BY MOUTH DAILY Follow-up/Referrals: Masoud Santos MD [Primary Care Provider] - 1 Week Time of Disposition: 15:00
--- OUTSIDE RECORDS SUMMARY | 2024-12-16 15:08 | XMS_ITS | Clinical Summary ---
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 Gender Identity Not on file Sexual Orientation Not on file Plan of Treatment Health Maintenance Due Date Last Done Comments Hepatitis C Virus (HCV) Screening 1973 TdaP Immunization 1973 Hepatitis B Immunization (1 of 3 - 19+ 3-dose series) 1992 Pap Smear 1994 Cervical Cancer Screening (CCS) 2003 HPV/Cotest 2003 Colonoscopy 2018 Colorectal Cancer Screening 2018 Cologuard 2023 Immunochemical Fecal Occult Blood 2023 Mammogram 2023 Pneumococcal Immunization (5 0+ years) (1 of 1 - PCV) 2023 Zoster Immunization (1 of 2) 2023 Influenza Immunization (#1) 2024 09/02/2020 SARS-COV-2 Immunization ( - season) 2024 Respiratory Syncytial Virus (RSV) Immunization (Adult) (1 - 1-dose 75+ series) 2048 Meningococcal Immunization (ACWY) Aged Out No longer eligible based on patient's age to complete this topic Pneumococcal Immunization Combined Aged Out No longer eligible based on patient's age to complete this topic Rotavirus Immunization Aged Out No lo nger eligible based on patient's age to complete this topic Insurance [employer] on file
--- OUTSIDE RECORDS SUMMARY | 2024-12-16 15:08 | XMS_ITS | Clinical Summary ---
Author Organization [facility] Address [address] [place] [address]. [place] [address] [place] [address] Care Team Providers Care Pasting Machine Operator Name Role Phone New Referring, Provider Primary Care Provider Un available Allergies No known active allergies Medications vitamin D3, cholecalciferol, 5000 UNITS capsule Take 1 capsule by mouth daily. 7 Active omeprazole (PRILOSEC OTC) 20 MG tablet Take 1 tablet by mouth daily as needed. Active sertraline 25 MG tablet Take 1 tablet by mouth daily. 6 Active sertraline 50 MG tablet Take 1 tablet by mouth daily. Total dose 75 mg once daily 6 Active solifenacin succinate (VESICARE) 10 MG Tab Take 1 tablet by mouth daily. 7 Active losartan 50 MG tablet Take 50 mg by mouth daily. Active hydrocodone-acetami nophen 5-325 MG tablet Take 1-2 tablets by mouth every 4 (four) hours as needed for Pain. 30 tablet 9 Active ondansetron 4 MG disintegrating tablet Take 1-2 tablets (4-8 mg total) by mouth every 8 (eight) hours as needed for Nausea. 30 tablet 9 Active Active Problems No known active problems Resolved Problems Problem Noted Date Diagnosed Date Resolved Date Abnormal uterine bleeding (AUB) 02/04/2019 02/05/2019 Family History Medical History Relation Comments Diabetes Father Diabetes Mother Hypertension Mother neuropathy Mother Asthma Son 1 Asthma Son 2 Relation Status Comments Brother Father Alive Mother Alive Sister Alive Son 1 Alive Son 2 Alive Son 3 Alive Social History Tobacco Use Types Packs/Day Years Used Date Smoking Tobacco: Never Smokeless Tobacco: Never Alcohol Use Standard Drinks/Week Comments No 0 (1 standard drink = 0.6 oz pur e alcohol) AUDIT-C Answer Date Recorded Frequency of Alcohol Consumption Never 01/12/2019 Average Number of Drinks Not on file 019 Frequency of Binge Drinking Not on file 12/20 Comments Unknown Sex and Gender Information Value Date Recorded Sex Assigned at Not on file Legal Sex Female 6:15 PM CDT Gender Identity Not on file Sexual Orientation Not on file Last Filed Vital Signs Vital Sign Reading Time Taken Comments Blood Pressure 104/67 02/05/2019 9:00 AM CDT Pulse 88 02/05/2019 9:00 AM CDT Temperature 36.8 ??C (98.2 ??F) 02/05/2019 9:00 AM CD T Respiratory Rate 22 02/05/2019 9:00 AM CDT Oxygen Saturation 97% 02/05/2019 9:00 AM CDT Inhaled Oxygen Concentration - - Weight 120 kg (264 lb 8.8 oz) 02/05/2019 5:00 AM CDT Height 167.6 cm (5' 6 ) 02/04/2019 8:20 AM CDT Body Mass Index 42.7 02/04/2019 8:20 AM CDT Plan of Treatment Health Maintenance Due Date Last Done Comments Cervical Cancer Screening Pa p Smear (Age 30 to 64) Every 3 Years 1973 Colorectal Cancer Screening Colonoscopy (10 Years) 1973 Annual Physical 1976 Hepatitis C 1991 DTaP, Tdap and Td Vaccines ( 1 - Tdap) 1992 Hepatitis B Vaccines (1 of 3 - 19+ 3-dose series) 1992 Cervical Cancer Screening Pa p with HPV Testing (Age 30 to 64) Every 5 Years 2003 Cervical Cancer Screening with HPV 2003 Mammogram Screening 2013 Zoster Vaccines (1 of 2) 2023 COVID-19 Vaccine (2023-2 5 season) 2024 Influenza Adult (#1) 2024 Meningococcal B Vaccine Aged Out No l onger eligible based on patient's age to complete this topic Meningococcal Vaccine Aged Out No harpreet dave eligible based on patient's age to complete this topic Pneumococcal Vaccine: Pediat rics (0 to 5 Years) and At-Risk Patients (6 to 64 Years) Aged Out No longer eligible b ased on patient's age to complete this topic RSV Immunizations Under 20 Months Aged Out No longer eligible based on patient's age to complete this topic Insurance Advance Directives * Full Code (Latest Code Status on File) Date Activated Date Inactivated Comments 02/04/2019 3:18 PM 02/05/2019 2:09 PM Care Teams Pasting Machine Operator Relationship Specialty Start Date End Date New Referring, Provider PCP - General UNKNOWN PHYSICIAN SPECIALTY 02/02/19
== END 2024-12-16 15:02 | disposition home or self-care (01) ==
PROVIDERS: Emergency Provider Nurse Practitioner Family; PCP Emergency Medicine
DX: S40.862A Insect bite (nonvenomous) of left upper arm, initial encounter (principal); W57.XXXA Bitten or stung by nonvenomous insect and other nonvenomous arthropods, initial encounter; K21.9 Gastro-esophageal reflux disease without esophagitis; F32.A Depression, unspecified
CPT/HCPCS: 99213; G0463

== ENCOUNTER 2025-03-03 16:29 | Emergency (ER) | payer OTHER, SELFPAY ==
--- NOTE | 2025-03-03 16:29 | ED.FEMALEGU ---
HPI - Female Genitourinary General Chief complaint: Urogenital-Female Stated complaint: uti symptoms Time Seen by Provider: 03/03/25 16:29 Source: patient Mode of arrival: ambulatory Limitations: no limitations History of Present Illness HPI Narrative: Patient is a 49-year-old female who presents with 3 days of bladder pressure, frequency, burning along with increased incontinence. Patient also has mild right flank pain. Patient has taken azo and try to increase water intake. Reports last UTI was too long ago to remember. Denies any fever, chills, nausea, vomiting, diarrhea. MD elicited complaint: dysuria Related Data Home Medications ?Medication ?Instructions ?Recorded ?Confirmed ?Last Taken ?Type cholecalciferol (vitamin D3) 25 25 mcg PO DAILY 02/13/24 08/17/24 02/21/24 History mcg (1,000 unit) tablet (Vitamin D3) Allergies Allergy/AdvReac Type Severity Reaction Status Date / Time No Known Allergies Allergy Verified 03/03/25 16:46 Review of Systems Review of Systems: All systems reviewed & are unremarkable except as noted in HPI and below Constitutional: Constitutional: Denies chills, Denies fever(s), Denies headache(s), Denies malaise and Denies weakness Eyes: Eyes: Denies change in vision, Denies eye discharge and Denies irritation ENT: Denies otalgia, Denies headache(s), Denies nasal congestion, Denies nasal discharge, Denies sinus pain and Denies sore throat Cardiovascular: Cardiovascular: Denies chest pain, Denies edema, Denies palpitations and Denies dyspnea Respiratory: Respiratory: Denies cough and Denies dyspnea Gastrointestinal: Gastrointestinal: Denies abdominal pain, Denies diarrhea, Denies nausea and Denies vomiting Genitourinary: Genitourinary: Denies hematuria, Reports nocturia, Reports dysuria, Reports flank pain and Reports urinary urgency Musculoskeletal: Musculoskeletal: Denies back pain and Denies numbness Integumentary/Breasts: Skin/Breast: Denies pruritus and Denies rash Neurologic: Denies headache(s), Denies numbness and Denies weakness Psychiatric: Psychiatric: Reports no additional psychiatric complaints Endocrine: Endocrine: Denies palpitations 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 Back pain Urinary incontinence Foot pain Sinusitis Other screening mammogram Depression GERD (gastroesophageal reflux disease) Abdominal pain Numbness and tingling in left hand Wrist pain, left Depression Fatigue Surgical History Surgical History H/O: hysterectomy Social History Social History Smoking status: Never smoker Alcohol intake: never Substance use: never Substance use type: does not use Do You Feel Safe in your Home?: Yes Lack of Transportation: No Lack of Food: Never True Current Housing: I Have Housing Concerned About Future Housing: No Difficulty Paying Gas/Electric Bills: No Difficulty Paying for Meds: No Currently Unemployed: No Education: Bachelor's Degree Difficulty w/ Childcare or Family Care: No Living arrangements: with family Gender identity (if verbalized by the patient): Female Spiritual care concerns: No Comments At time of signature, agree with nursing past medical, surgical, social and family history. There is no relevant family history pertinent to the presenting complaint. Exam Const: General: cooperative, healthy appearing, comfortable, no acute distress and well nourished Nutritional Appearance: well nourished Orientation/consciousness: patient oriented x3 HENMT: Head: normocephalic and atraumatic Ears: external ears normal Face/Nose/Sinus: Normal external nose present, Normal nares present and normal facial exam Face and sinus: normal facial exam Eyes: General: appearance normal, both eyes and all related structures Pupils: Equal, round and reactive pupils present EOM: EOMs intact bilaterally Neck: Neck: normal visual inspection, full ROM and supple Chest: Chest palpation & inspection: normal inspection of the chest Resp: Effort & Inspection: normal respiratory effort and able to speak in complete sentences Cardio: Rate: regular rate Rhythm: regular rhythm GI: Inspection: normal to inspection GI Palp: No abdominal tenderness and Yes Soft to palpation : General: Yes no CVA tenderness Back/Spine/Pelvis: Back: no CVA tenderness Skin: General skin exam: normal color and no rashes or lesions noted Neuro: General: patient oriented x3 and moves all extremities Cranial nerves: Yes Equal, round and reactive pupils present Extrem: General: normal to inspection and full ROM Psych: Appearance: grossly normal and well kempt Course Course Emergency Course: Patient is aware of diagnosis, understands and agrees to treatment plan. Anticipatory guidance given. Patient agrees to follow-up as directed and is aware of reasons to seek care at the emergency department. Portions of this record may have been created with voice recognition software Level of Care: Express Care Visit Vital Signs Vital signs: Vital Signs Temperature 37.0 C 03/03/25 16:37 Pulse Rate 87 03/03/25 16:37 Respiratory Rate 16 03/03/25 16:37 Blood Pressure 134/74 03/03/25 16:37 Pulse Oximetry 98 03/03/25 16:37 Oxygen Delivery Room Air 03/03/25 16:37 Temperature 37.0 C 03/03/25 16:37 Pulse Rate 87 03/03/25 16:37 Respiratory Rate 16 03/03/25 16:37 Blood Pressure 134/74 03/03/25 16:37 Pulse Oximetry 98 03/03/25 16:37 Oxygen Delivery Room Air 03/03/25 16:37 Reviewed MDM - Female Genitourinary MDM Narrative Medical decision making narrative: Exam findings and UA show probable UTI; patient is non-toxic appearing and is in no distress. No CMT, adnexal tenderness, or evidence of pelvic etiology. Patient is appropriate for outpatient treatment and follow-up. Differential Diagnosis Differential diagnosis: Likely urinary tract infection, bacterial vaginosis, trichomoniasis, cervicitis, vaginitis and cystitis Medical Records Attestation: I reviewed the patient's medical records. Lab Data Attestation: I reviewed the patient's lab results. Labs: Lab Results 03/03/25 Range/Units 16:44 POC Urine Color Yellow POC Urine Clarity Cloudy POC Urine pH 5.5 POC Ur Specif Guthrie 1.020 POC Urine Protein 1+ (Negative) POC Ur Glucose (UA) Negative (Negative) POC Urine Ketones Negative (Negative) POC Urine Blood 3+ (Negative) POC Urine Nitrite Positive (Negative) POC Urine Bilirubin Negative (Negative) POC Urine Urobilinogen 0.2 POC U Leukocyte Esteras 2+ (Negative) Discharge Plan Discharge Clinical Impression: Urinary tract infection Qualifiers: Urinary tract infection type: acute cystitis Hematuria presence: with hematuria Qualified Code(s): N30.01 - Acute cystitis with hematuria Patient Disposition: Home Condition: Stable Instructions: Urinary Tract Infection in Women (ED) Additional Instructions: We will send a urine culture to the lab, based on your symptoms and urine dip we will start treatment today. If culture comes back and bacteria is not susceptible to antibiotic, your prescription may change. Your symptoms should improve within a day of starting antibiotics, but you should finish all the antibiotic pills you get. Otherwise your infection might come back Continue with increased water intake. Take Tylenol or ibuprofen as needed for pain or fever. Follow-up with primary care provider for urine recheck or see ER visit if condition worsens with high fever, nausea, vomiting, severe back pain Patient Language: Occitan Prescriptions: New nitrofurantoin monohyd/m-cryst 100 mg capsule 100 mg PO Q12H 5 Days Qty: 10 0RF Rx Instructions: must administer with a meal/food No Action cholecalciferol (vitamin D3) [Vitamin D3] 25 mcg (1,000 unit) Tablet 25 mcg PO DAILY tolterodine 2 mg capsule,extended release 24hr See Rx Instructions .ROUTE .COMPLEX Qty: 90 2RF Dose Instruction: TAKE 1 CAPSULE BY MOUTH DAILY Rx Instructions: TAKE 1 CAPSULE BY MOUTH DAILY pantoprazole 40 mg tablet,delayed release (DR/EC) See Rx Instructions .ROUTE .COMPLEX Qty: 90 2RF Dose Instruction: TAKE 1 TABLET BY MOUTH EVERY DAY Rx Instructions: TAKE 1 TABLET BY MOUTH EVERY DAY sertraline 50 mg tablet See Rx Instructions .ROUTE .COMPLEX Qty: 90 2RF Dose Instruction: TAKE 1 TABLET BY MOUTH DAILY Rx Instructions: TAKE 1 TABLET BY MOUTH DAILY losartan 100 mg tablet See Rx Instructions .ROUTE .COMPLEX Qty: 90 2RF Dose Instruction: TAKE 1 TABLET BY MOUTH DAILY Rx Instructions: TAKE 1 TABLET BY MOUTH DAILY Follow-up/Referrals: Masoud Santos MD [Primary Care Provider] - 3 Days Time of Disposition: 17:20
[2025-03-03 16:37] VITALS: BP 134/74; PULSE 87; RESP 16; TEMP 37; O2SAT 98
[2025-03-03 16:48] LABS: EDUAAPPEAR Cloudy; EDUABILI Negative (Negative); EDUABLOOD 3+ (Negative); EDUACOLOR1 Yellow; EDUAGLUCOSE Negative (Negative); EDUAKETONE Negative (Negative); EDUALEUKO 2+ (Negative); EDUANITRATE Positive (Negative); EDUAPH 5.5; EDUAPROTEIN 1+ (Negative); EDUAUROBILI 0.2
--- OUTSIDE RECORDS SUMMARY | 2025-03-03 16:55 | XMS_ITS | Clinical Summary ---
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
--- OUTSIDE RECORDS SUMMARY | 2025-03-03 16:55 | XMS_ITS | Clinical Summary ---
Author Organization [facility] Address [address] [place] [address] Care Team Providers Care Vp Security Name Role Phone New Referring, Provider Primary [...] 88 02/05/2019 9:00 AM CDT Temperature 36.8 C (98.2 F) 02/05/2019 9:00 AM CDT Respiratory Rate 22 02/05/2019 9:00 AM CDT [...] 2023 COVID-19 Vaccine (2023-2 5 season) 2024 Meningococcal B Vaccine Aged Out No l onger eligible based on patient's age to complete this topic Meningococcal Vaccine Aged Out No harpreet dave eligible based on patient's age to complete this topic Pneumococcal Vaccine: Pediat rics (0 to 5 Years) and At-Risk Patients (6 to 49 Years) Aged Out No longer eligible b ased on patient's age to complete this topic RSV Immunizations Under 20 Months Aged Out No longer eligible based on patient's age to complete this topic Insurance Advance Directives * Full Code (Latest Code Status on File) Date Activated Date Inactivated Comments 02/04/2019 3:18 PM 02/05/2019 2:09 PM Care Teams Vp Security Relationship Specialty Start Date End Date New Referring, Provider PCP - General UNKNOWN PHYSICIAN SPECIALTY 02/02/19
== END 2025-03-03 17:22 | disposition home or self-care (01) ==
PROVIDERS: Emergency Provider Nurse Practitioner Family; PCP Emergency Medicine
DX: N30.01 Acute cystitis with hematuria (principal); K21.9 Gastro-esophageal reflux disease without esophagitis
CPT/HCPCS: 81003; 87077; 87086; 87186; 99213; A4565; G0463

== ENCOUNTER 2025-03-13 11:05 | Emergency (ER) | payer OTHER, SELFPAY ==
--- OUTSIDE RECORDS SUMMARY | 2025-03-13 11:09 | XMS_ITS | Clinical Summary ---
Author Organization 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
--- OUTSIDE RECORDS SUMMARY | 2025-03-13 11:09 | XMS_ITS | Clinical Summary ---
Author Organization [facility] Address [address] [place] [address] Care Team Providers Care Program Paraprofessional Name Role Phone New Referring, Provider Primary [...] Screening with HPV 2003 Mammogram Screening 2013 Pneumococcal Vaccine: 50+ Ye ars (1 of 1 - PCV) 2023 Zoster Vaccines (1 of 2) 2023 COVID-19 Vaccine ( - 2023-2 5 season) 2024 Meningococcal B Vaccine Aged [...] 3:18 PM 02/05/2019 2:09 PM Care Teams Program Paraprofessional Relationship Specialty Start Date End Date New Referring, Provider PCP - General UNKNOWN PHYSICIAN SPECIALTY 02/02/19
--- NOTE | 2025-03-13 11:10 | ED.FEMALEGU ---
HPI - Female Genitourinary General Chief complaint: Urogenital-Female Stated complaint: uti symptoms Time Seen by Provider: 03/13/25 11:09 Source: patient, RN notes reviewed and old records reviewed Mode of arrival: ambulatory Limitations: no limitations History of Present Illness HPI Narrative: Marla is a 49-year-old female patient presenting to the clinic today with complaints of possible UTI. She was seen on the 03 of March and was diagnosed with UTI at that time given Macrobid. Her culture came back positive for E coli and was susceptible to Macrobid. She reports her symptoms did improve but she still has some bladder pressure sensation. This morning woke up and her symptoms were worse with decreased urine output, malodorous urine, and some burning with urination. She denies any flank pain or abdomen pain. No fever, nausea, or vomiting Related Data Home Medications ?Medication ?Instructions ?Recorded ?Confirmed ?Last Taken ?Type cholecalciferol (vitamin D3) 25 25 mcg PO DAILY 02/13/24 03/11/25 02/21/24 History mcg (1,000 unit) tablet (Vitamin D3) Allergies Allergy/AdvReac Type Severity Reaction Status Date / Time No Known Allergies Allergy Verified 03/13/25 11:20 Review of Systems Review of Systems: Pertinent positives per HPI. Patient denies any fever, chills, rash, headache, visual changes, dizziness, cough, runny nose, sore throat, shortness of breath, chest pain, palpitations, nausea, vomiting, diarrhea, constipation, abdominal pain, or any urinary issues. 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 Back pain Urinary incontinence Foot pain Sinusitis Other screening mammogram Depression GERD (gastroesophageal reflux disease) Abdominal pain Numbness and tingling in left hand Wrist pain, left Depression Fatigue Surgical History Surgical History H/O: hysterectomy Social History Social History Smoking status: Never smoker Alcohol intake: never Substance use: never Substance use type: does not use Do You Feel Safe in your Home?: Yes Lack of Transportation: No Lack of Food: Never True Current Housing: I Have Housing Concerned About Future Housing: No Difficulty Paying Gas/Electric Bills: No Difficulty Paying for Meds: No Currently Unemployed: No Education: Bachelor's Degree Difficulty w/ Childcare or Family Care: No Living arrangements: with family Gender identity (if verbalized by the patient): Female Spiritual care concerns: No Comments At the time of my signature, I reviewed and agree with the nursing past medical, surgical, social, and family history. There is no relevant family history pertinent to the patient complaint. Exam Narrative: General: Well-developed, well nourished, in no apparent distress. Head: Normocephalic, atraumatic. Cardio: Regular rate and rhythm, s1 and s2 normal, no murmur appreciated. Resp: Clear to auscultation bilaterally, no rhonchi, rales, wheezing or rubs. Abdomen: Soft, pliable, bowel sounds present in all quadrants, suprapubic tender to palpation, no organomegly, no CVAT tenderness. Course Course Emergency Course: Portions of this record may have been created with voice recognition software. Level of Care: Express Care Visit Vital Signs Vital signs: Vital Signs Temperature 36.3 C L 03/13/25 11:15 Pulse Rate 80 03/13/25 11:15 Respiratory Rate 18 03/13/25 11:15 Blood Pressure 140/87 03/13/25 11:15 Pulse Oximetry 98 03/13/25 11:15 Oxygen Delivery Room Air 03/13/25 11:15 Temperature 36.3 C L 03/13/25 11:15 Pulse Rate 80 03/13/25 11:15 Respiratory Rate 18 03/13/25 11:15 Blood Pressure 140/87 03/13/25 11:15 Pulse Oximetry 98 03/13/25 11:15 Oxygen Delivery Room Air 03/13/25 11:15 Vital signs reviewed MDM - Female Genitourinary MDM Narrative Medical decision making narrative: At the time of visit patient is resting comfortably on the exam table. Patient appears to be nontoxic. Labs: Urinalysis is positive for leukocytes, blood, and protein. We will send urine for culture. Plan: I suspect patient has UTI. Her last culture came back positive for E coli did not have any resistance. Prescription for Augmentin was sent to the pharmacy. Will also send fluconazole as patient states that she does get yeast infections when taking antibiotics at times. Supportive measures were discussed with the patient and they voiced understanding discharge instructions and agrees to treatment plan. Return precautions reviewed Differential Diagnosis Differential diagnosis: Likely urinary tract infection and cystitis Lab Data Labs: Lab Results 03/13/25 Range/Units 11:22 POC Urine Color Yellow POC Urine Clarity Cloudy POC Urine pH 6.0 POC Ur Specif [place] 1.025 POC Urine Protein 1+ (Negative) POC Ur Glucose (UA) Negative (Negative) POC Urine Ketones Negative (Negative) POC Urine Blood 2+ (Negative) POC Urine Nitrite Negative (Negative) POC Urine Bilirubin Negative (Negative) POC Urine Urobilinogen 0.2 POC U Leukocyte Esteras 3+ (Negative) Discharge Plan Discharge Clinical Impression: UTI (urinary tract infection) Qualifiers: Urinary tract infection type: acute cystitis Hematuria presence: with hematuria Qualified Code(s): N30.01 - Acute cystitis with hematuria Patient Disposition: Home Condition: Stable Instructions: Antibiotic Form, Urinary Tract Infection in Women (ED) Additional Instructions: Urinalysis positive for protein, blood, and leukocytes. We will send urine for culture. Take Augmentin as prescribed Take fluconazole if you develop be yeast infection Increase fluids and stay well hydrated Wipe front to back. May use wet wipes. Avoid tub baths If sexually active- pee before and after intercourse. Wear cotton panties Avoid tight clothing up against the genitals Follow up with your PCP in 1 week if symptoms persist. Patient Language: Macedonian Prescriptions: New amoxicillin-pot clavulanate 875-125 mg tablet 1 tablet PO Q12H 10 Days Qty: 20 0RF fluconazole 150 mg tablet 150 mg PO ONCE Qty: 2 0RF Rx Instructions: as a single dose. May repeat in 72 hours if needed. No Action cholecalciferol (vitamin D3) [Vitamin D3] 25 mcg (1,000 unit) Tablet 25 mcg PO DAILY tolterodine 2 mg capsule,extended release 24hr See Rx Instructions .ROUTE .COMPLEX Qty: 90 2RF Dose Instruction: TAKE 1 CAPSULE BY MOUTH DAILY Rx Instructions: TAKE 1 CAPSULE BY MOUTH DAILY pantoprazole 40 mg tablet,delayed release (DR/EC) See Rx Instructions .ROUTE .COMPLEX Qty: 90 2RF Dose Instruction: TAKE 1 TABLET BY MOUTH EVERY DAY Rx Instructions: TAKE 1 TABLET BY MOUTH EVERY DAY sertraline 50 mg tablet See Rx Instructions .ROUTE .COMPLEX Qty: 90 2RF Dose Instruction: TAKE 1 TABLET BY MOUTH DAILY Rx Instructions: TAKE 1 TABLET BY MOUTH DAILY losartan 100 mg tablet See Rx Instructions .ROUTE .COMPLEX Qty: 90 2RF Dose Instruction: TAKE 1 TABLET BY MOUTH DAILY Rx Instructions: TAKE 1 TABLET BY MOUTH DAILY Follow-up/Referrals: Masoud Santos MD [Primary Care Provider] - Time of Disposition: 11:30 Quality NIHSS Nursing Documentation ED NIHSS nursing documentation: reviewed/agree
[2025-03-13 11:15] VITALS: BP 140/87; PULSE 80; RESP 18; TEMP 36.3; O2SAT 98
[2025-03-13 11:24] LABS: EDUAAPPEAR Cloudy; EDUABILI Negative (Negative); EDUABLOOD 2+ (Negative); EDUACOLOR1 Yellow; EDUAGLUCOSE Negative (Negative); EDUAKETONE Negative (Negative); EDUALEUKO 3+ (Negative); EDUANITRATE Negative (Negative); EDUAPROTEIN 1+ (Negative); EDUASPGRAVITY 1.025; EDUAUROBILI 0.2
== END 2025-03-13 11:34 | disposition home or self-care (01) ==
PROVIDERS: Emergency Provider Nurse Practitioner Family; PCP Emergency Medicine
DX: N30.01 Acute cystitis with hematuria (principal); K21.9 Gastro-esophageal reflux disease without esophagitis
CPT/HCPCS: 81003; 87086; 87186; 99213; G0463

== ENCOUNTER 2025-08-15 10:42 | Emergency (ER) | payer OTHER, SELFPAY ==
--- OUTSIDE RECORDS SUMMARY | 2024-07-03 08:40 | XMS_ITS | Continuity of Care Document ---
Author Organization [facility] Address [address] [place] [phone] Phone Care Team Providers Care Marketing Sales Manager Name Role Phone Michael SHENAArabella Unavailable Unavailable Allergies, Adverse Reactions, Alerts Substance Reaction Status Criticality No Known Allergies Active No Inform ation Medications Medication Instructions Dosage Effective Dates (start - stop) Status Comments Zoloft 20 mg/mL oral concentrate take 5 milliliter by oral route every day and mix with 4 oz. (1/2 cup) of water, jorge prudencio, lemon/[place] soda, lemonade or orange juice ONLY 100 MG - Active losartan 50 mg tablet take 1 tablet by o ral route every day 50 MG - Active Ostera 500 unit-500 mcg-90 mg-370 mg tablet - Active Procedures Procedure Date Simpl Repr Face/mucous; 2.5/le 24 Surgical Trays Offic/outpt E&m [facility] 4 Services provided in an urgent care cent er Td Preservative Free 7yrs And Older Immuniz Admin; 1/combo Vacc/to 24 Advance Directives Directive Yes / No Effective Date File Name No Information Encounters Encounter Description Practice Location Reason(s) For Visit Diagnoses Date Provider Providers Copied on Encounter Offic/outpt E&m [facility], [address], [place], [place], [id number] , [place] tel:[phone] [facility] Laceration (chief complaint) Lip laceration, initial encounterContusion of right knee, initial encounterAbrasion of nose, initial encounterEncounter for immunization Michael CHATTERJEE Arabella. [address] [place], [address], . tel:[phone] Family History Family Member Type Diagnosis Age At Onset Family h/o Problem ALS Family h/o Problem Diabetes Immunizations Vaccine Date Status Comments Td, preservative free, (7 yr s and older) completed Source: Source Unspe cified Td, preservative free, (7 yr s and older) completed Source: Source Unspe cified Payers Payer name Insurance type Covered democrat ID Authoriza tion(s) No Information Social History Type Description Quantity Date Captured Comments Alcohol Use Details No Caffeine Use Details Unknown Tobacco Use Status Current non-smoker Smoking Status Never smoker Non-Smoking Tobacco Use Details : No Details Available : No Details Available Sex Female Vital Signs Date / Time: Height Weight BMI Pulse Rate Blood Pressure Temperature Respiratory Rate Body Surface Area Head Circumference Head Circ. Percentile Wt./Ankit. Percentile BMI percentile Pulse Ox Inhaled Ox 2:08 PM 65.00 in 104.326 kg (230.00 lbs) 38.2 7 kg/m eter (2) 88 /min 121/81 mm[Hg] 98.10 F 18 /min 93 % Chief Complaint And Reason For Visit From encounter dated '07/03/2024 13:40'. Laceration (chief complaint). Description: This is an initial visit. The injury occurred 1 to 2 years ago. Mechanism of injury details: TRIPPED OVER CURB, FELL ONTO FACE, R KNEE, L PALM. The patient has a laceration. The patient has an abrasion. The patient denies any aggravating factors. Interventions the patient has tried have not provided any relief. The injury is associated with localized swelling. The patient denies any abdominal pain, change in appetite, chills, decreased mobility, diarrhea, fatigue, fever, generalized weakness, headache, joint pain, lymphadenopathy, malaise, nausea, rash, somnolence, vomiting and weight loss. Reason For Referral Reason For Referral No Information Plan Of Treatment Date Type Action Status Patient Education Scrapes (Abrasions): Ca re Instructions completed Patient Education Lip Laceration: Care In structions completed History Of Present Illness Encounter Date Complaint History Of Prese nt Illness Laceration This is an initi al visit. The injury occurred 1 to 2 years ago. Mechanism of injury details: TRIPPED OVER CURB, FELL ONTO FACE, R KNEE, L PALM. The patient has a laceration. The patient has an abrasion. The patient denies any aggravating factors. Interventions the patient has tried have not provided any relief. The injury is associated with localized swelling. The patient denies any abdominal pain, change in appetite, chills, decreased mobility, diarrhea, fatigue, fever, generalized weakness, headache, joint pain, lymphadenopathy, malaise, nausea, rash, somnolence, vomiting and weight loss. Functional Status Date Functional Assessmen t No Information Instructions Date Instruction Additional Infor mation CLEAN WOUND TWICE DA GARCIA WITH WATER (YOU MAY USE MILD SOAP WITHOUT DYE OR FRAGRANCE SUCH IVORY). SCAB DEBRIS MAY BE GENTLY CLEANED WITH A Q-TIP. RE-DRESS DAILY OR ANYTIME THE WOUND OR DRESSING BECOMES WET OR SOILED. KEEP DRESSING CLEAN AND DRY. DO NOT IMMERSE WOUND ( IN DISHWATER OR BATH) UNTIL SUTURES/BETHANY HAVE BEEN REMOVED HOWEVER YOU MAY SHOWER OR RUN UNDER WATER AFTER 24 HOURS. LEAVE INITIAL DRESSING IN PLACE TODAY, THEN REMOVE AND USE A NEW DRY DRESSING EACH DAY UNTIL WELL HEALING. YOU MAY APPLY SMALL AMOUNT OF BACITRACIN OR NEOSPORIN TO YOUR WOUND THE FIRST 2-3 DAYS WHENEVER YOU CHANGE YOUR DRESSING/BANDAID. DO NOT APPLY A TOPICAL ANTIBIOTIC OR OTHER WOUND CARE PRODUCT AFTER THE 3RD DAY.WATCH CLOSELY FOR THESE SIGNS OF INFECTION: REDNESS; DRAINAGE/PUS; WARMTH AT SITE OR GENERAL FEVER; SWELLING; RED STREAKS; INCREASING PAIN. RETURN TO THE CLINIC OR GO TO THE EMERGENCY ROOM IF THESE SYMPTOMS DEVELOP. Related to Lip laceration, initial encounter REST, ICE, COMPRESSI ON, ELEVATION PLEASE USE COLD PACKS (BAGGED FROZEN PEAS OR CORN WORK WELL) FOR PAIN AND/OR SWELLING. IF YOU USE ICE, ALWAYS PLACE A TOWEL BETWEEN THE ICE AND YOUR SKIN (TO AVOID FROSTBITE) OR USE AN ICE BAG. APPLY ICE FOR 20-30 MINUTES AT A TIME, WITH AT LEAST 20 MINUTES BETWEEN APPLICATIONS. PLEASE USE AN KELVIN WRAP ON THE INJURED AREA FOR SEVERAL DAYS. IF YOU EXPERIENCE NUMBNESS OR TINGLING, OR IF THE AREA PAST YOUR KELVIN WRAP APPEARS PALE, YOUR KELVIN WRAP IS TOO TIGHT. IF IT THE WRAP IS SAGGING OR IS FAILING TO PROVIDE SUPPORT, IT IS TOO LOOSE. IF IT IS TOO TIGHT OR TOO LOOSE, REWRAP IT. KELVIN WRAP SHOULD NOT BE WORN AT NIGHT OR SHOULD AT LEAST BE LOOSENED TO AVOID CUTTING OFF CIRCULATION WHILE SLEEPING SHOULD SWELLING OCCUR. KEEP INJURED PART ELEVATED (ABOVE HEART) FOR 2-3 DAYS, WHENEVER YOU ARE SITTING OR LYING DOWN. DO THIS A MINIMUM OF 30 MINUTES SEVERAL TIMES DAILY FOR THE NEXT 2-3 DAYS. Related to Contusion of right knee, initial encounter Assessments Type Assessment Date assessment Lip laceration, initial encounte r assessment Contusion of right knee, initial encounter assessment Abrasion of nose, initial encoun ter assessment Encounter for immunization Mental Status Date Cognitive Assessment Orientation - [place] ed to time, place, person, situation. Patient Care Teams Name Effective Dates (start - stop) Status Members No Information
--- OUTSIDE RECORDS SUMMARY | 2024-07-03 08:40 | XMS_ITS | Continuity of Care Document ---
Author Organization [facility] Address [address] [place] [phone] Phone Care Team Providers Care Edge Inker Name Role Phone Michael SHENAArabella Unavailable Unavailable Allergies, Adverse Reactions, Alerts Substance Reaction Status Criticality No Known Allergies Active No Inform ation Medications Medication Instructions Dosage Effective Dates (start - stop) Status Comments Zoloft 20 mg/mL oral concentrate take 5 milliliter by oral route every day and mix with 4 oz. (1/2 cup) of water, jorge prudencio, lemon[place] soda, lemonade or orange juice ONLY 100 MG - Active losartan 50 mg tablet take 1 tablet by o ral route every day 50 MG - Active Ostera 500 unit-500 mcg-90 mg-370 mg tablet - Active Procedures Procedure Date Simpl Repr Face/mucous; 2.5/le 24 Surgical Trays Offic/outpt E&m [facility] 4 Services provided in an urgent care cent er Td Preservative Free 7yrs And Older Immuniz Admin; 1/combo Vacc/to 24 Advance Directives Directive Yes / No Effective Date File Name No Information Encounters Encounter Description Practice Location Reason(s) For Visit Diagnoses Date Provider Providers Copied on Encounter Offic/outpt E&m [facility], [address], [place], [place], [id number] , [place] tel:[phone] [facility] Laceration (chief complaint) Lip laceration, initial encounterContusion of right knee, initial encounterAbrasion of nose, initial encounterEncounter for immunization Michael CHATTERJEE Arabella. [address] [place], [address], . tel:[phone] Family History Family Member Type Diagnosis Age At Onset Family h/o Problem Diabetes Family h/o Problem ALS Immunizations Vaccine Date Status Comments Td, preservative free, (7 yr s and older) completed Source: Source Unspe cified Td, preservative free, (7 yr s and older) completed Source: Source Unspe cified Payers Payer name Insurance type Covered constitution party ID Authoriza tion(s) No Information Social History [...] Mental Status Date Cognitive Assessment Orientation - [place] ed to time, place, person, situation. Patient Care Teams Name Effective Dates (start - stop) Status Members No Information
--- NOTE | 2025-08-15 10:44 | ED.NECK ---
HPI - Neck Pain/Injury General Chief Complaint: Extremity Injury, Upper Stated Complaint: L arm pain/neck pain Time Seen by Provider: 08/15/25 10:43 Source: patient Mode of arrival: ambulatory Limitations: no limitations History of Present Illness HPI Narrative: Marla is a 50-year-old female patient presenting to the clinic today with complaints of dizziness, neck pain, and left arm pain. She reports dizziness has been intermittent for the past couple weeks. States the neck pain and arm pain started 4 days ago. Rates her pain currently at 10/10. Has been taking ibuprofen, Tylenol, and apply heating pad to the area to help alleviate pain. Does not have pain when she turns her head side to side. Movement does cause her dizziness to worsen. Movement of her arm does not make her pain worse. She denies any headache, visual changes, chest pain, or shortness of breath. No injury to her head, neck, or arm. Related Data Home Medications ?Medication ?Instructions ?Recorded ?Confirmed ?Last Taken ?Type cholecalciferol (vitamin D3) 25 25 mcg PO DAILY 02/13/24 08/15/25 02/21/24 History mcg (1,000 unit) tablet (Vitamin D3) vibegron 75 mg tablet (Gemtesa) mg 08/15/25 Unknown History Allergies Allergy/AdvReac Type Severity Reaction Status Date / Time No Known Allergies Allergy Verified 04/06/25 15:45 Review of Systems Review of Systems: Pertinent positives per HPI. Patient denies any fever, chills, rash, headache, visual changes, cough, runny nose, sore throat, shortness of breath, chest pain, palpitations, nausea, vomiting, diarrhea, constipation, abdominal pain, or any urinary issues. 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 Back pain Urinary incontinence Foot pain Sinusitis Other screening mammogram Depression GERD (gastroesophageal reflux disease) Abdominal pain Numbness and tingling in left hand Wrist pain, left Depression Fatigue Surgical History Surgical History H/O: hysterectomy Social History Social History Smoking status: Never smoker Alcohol intake: never Substance use: never Substance use type: does not use Do You Feel Safe in your Home?: Yes Lack of Transportation: No Lack of Food: Never True Current Housing: I Have Housing Concerned About Future Housing: No Difficulty Paying Gas/Electric Bills: No Difficulty Paying for Meds: No Currently Unemployed: No Education: Bachelor's Degree Difficulty w/ Childcare or Family Care: No Living arrangements: with family Gender identity (if verbalized by the patient): Female Spiritual care concerns: No Comments At the time of my signature, I reviewed and agree with the nursing past medical, surgical, social, and family history. There is no relevant family history pertinent to the patient complaint. Exam Narrative: General: Well-developed, obese, appears uncomfortable due to pain Head: Normocephalic, atraumatic Eyes: Pupils equally round and reactive to light bilaterally, EOM intact, sclera and conjunctive clear, no discharge, lids normal Ears: TMs intact and clear, ear canals clear, no drainage, grossly hearing normal. Nose: Nares patent, no discharge, no inflammation, no sinus tenderness. Mouth: Oropharynx without lesions or masses, good dentition, MMM. Neck: Supple, trachea midline, no enlargement of anterior or posterior cervical nodes, no thyroid masses or goiter palpable. Cardio: Regular rate and rhythm, s1 and s2 normal, no murmur appreciated. Resp: Clear to auscultation bilaterally anteriorly and posteriorly, no rhonchi, rales, wheezing or rubs Musculoskeletal: No deformity,tender to palpation over the base of the cervical spine and upper thoracic spine, pain to palpation over the left trapezius musculature with pain radiating into the shoulder and over the humerus, grossly normal range of motion, range of motion does not make pain worse, negative drop-arm test, empty can, and full can testing, bilateral upper extremities/hand grasp strength strong and equal, peripheral pulse strong, no edema, no cyanosis, normal gait and station Neuro: Alert and oriented x4 with normal speech, no focal deficits, cranial nerves I through XII intact, muscle strength 5 out of 5, sensation intact bilaterally Course Course Emergency Course: Portions of this record may have been created with voice recognition software. Level of Care: Express Care Visit Vital Signs Vital signs: Vital Signs Temperature 36.6 C 08/15/25 10:51 Pulse Rate 80 08/15/25 10:51 Respiratory Rate 18 08/15/25 10:51 Blood Pressure 142/81 H 08/15/25 10:51 Pulse Oximetry 96 08/15/25 10:51 Oxygen Delivery Room Air 08/15/25 10:51 Temperature 36.6 C 08/15/25 10:51 Pulse Rate 80 08/15/25 10:51 Respiratory Rate 18 08/15/25 10:51 Blood Pressure 142/81 H 08/15/25 10:51 Pulse Oximetry 96 08/15/25 10:51 Oxygen Delivery Room Air 08/15/25 10:51 Vital signs reviewed Transfer Transfered to: [facility] Transportation: Other (Private car) Transfer rationale: Higher level of care- neck pain/dizziness/L arm pain Accepting physician: Dr. Flores Transfer comments: Private car- to drive. MDM - Neck Pain/Injury MDM Narrative Medical decision making narrative: At the time of visit patient is resting comfortably on the exam table. Patient appears to be nontoxic. Complaints of dizziness, neck pain, and left arm pain. She reports dizziness has been intermittent for the past couple weeks. States the neck pain and arm pain started 4 days ago. Rates her pain currently at 10/10. Has been taking ibuprofen, Tylenol, and apply heating pad to the area to help alleviate pain. Does not have pain when she turns her head side to side. Movement does cause her dizziness to worsen. Movement of her arm does not make her pain worse. She denies any headache, visual changes, chest pain, or shortness of breath. No injury to her head, neck, or arm. No chiropractic manipulations. EKG was ordered. EKG: EKG shows normal sinus rhythm with her 73 beats per minute without ST elevation, depression, or T-wave inversion. Plan: Patient is having intermittent dizziness with lower neck/upper thoracic back pain and pain to the left arm. Recommend transfer to the ER for further evaluation. Patient agrees to transfer and would like to go to [facility] emergency room. Spoke with Dr. Flores and report was given for continuity of care. He accepts patient. Patient to be driven by private car to the ER by her . Differential Diagnosis Differential diagnosis: Likely disc disorder of cervical region, whiplash injury to neck, closed subluxation of cervical spine, fracture of cervical spine without lesion of spinal cord, cervical radiculopathy, vertebral artery dissection, torticollis, cervical spondylosis, strain of neck muscle and other ECG Data EKG #1: Attestation: I personally reviewed and interpreted this ECG as follows: ECG completion date: 08/15/25 ECG completion time: 11:19 Prior ECG tracings: not available for review Interpretation: EKG shows normal sinus rhythm with her 73 beats per minute without ST elevation, depression, or T-wave inversion. SD interval is 141 milliseconds, QRS durations 94 milliseconds, QT-QTC is 387-413 milliseconds, P-R-T axis is 18 16 24 Discharge Plan Discharge Clinical Impression: Arm pain, left, Dizziness, Neck pain Patient Disposition: Acute Care Hospital Condition: Stable Patient Language: [place] Citizen Prescriptions: No Action Gemtesa 75 mg tablet pantoprazole 40 mg tablet,delayed release (DR/EC) 40 mg PO BID Qty: 180 2RF cholecalciferol (vitamin D3) [Vitamin D3] 25 mcg (1,000 unit) Tablet 25 mcg PO DAILY losartan 100 mg tablet See Rx Instructions .ROUTE .COMPLEX Qty: 90 2RF Dose Instruction: TAKE 1 TABLET BY MOUTH DAILY Rx Instructions: TAKE 1 TABLET BY MOUTH DAILY sertraline 50 mg tablet See Rx Instructions .ROUTE .COMPLEX Qty: 90 2RF Dose Instruction: TAKE 1 TABLET BY MOUTH DAILY Rx Instructions: TAKE 1 TABLET BY MOUTH DAILY Zepbound 10 mg/0.5 mL pen injector 10 mg subcut WEEKLY Qty: 2 0RF Follow-up/Referrals: Masoud Santos MD [Primary Care Provider, Internal Medicine] Time of Disposition: 11:26 Quality NIHSS Nursing Documentation ED NIHSS nursing documentation: reviewed/agree
--- OUTSIDE RECORDS SUMMARY | 2025-08-15 10:44 | XMS_ITS | Clinical Summary ---
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 Gender Identity Not on file Sexual Orientation Not on file Plan of Treatment Health Maintenance Due Date Last Done Comments Hepatitis C Virus (HCV) Screening 1973 TdaP Immunization 1973 Hepatitis B Immunization (1 of 3 - 19+ 3-dose series) 1992 Pap Smear 1994 Cervical Cancer Screening (CCS) 2003 HPV/Cotest 2003 Cologuard 2018 Colonoscopy 2018 Colorectal Cancer Screening 2018 Immunochemical Fecal Occult Blood 2018 Pneumococcal Immunization (5 0+ years) (1 of 1 - PCV) 2023 Zoster Immunization (1 of 2) 2023 SARS-COV-2 Immunization ( - season) 2024 Influenza Immunization (#1) 2025 09/02/2020 Respiratory Syncytial Virus (RSV) Immunization (Adult) (1 - 1-dose 75+ series) 2048 Human Papillomavirus (HPV) Immunization Aged Out No longer eligible b ased on patient's age to complete this topic Meningococcal Immunization (ACWY) Aged Out No longer eligible based on patient's age to complete this topic Rotavirus Immunization Aged Out No lo nger eligible based on patient's age to complete this topic Insurance [employer] on file
--- OUTSIDE RECORDS SUMMARY | 2025-08-15 10:46 | XMS_ITS | Clinical Summary ---
Author Organization [facility] Address [address] [place] [address] Care Team Providers Care Top Distribution Executive Name Role Phone New Referring, Provider Primary [...] 5:00 AM CDT Height 167.6 cm (5' 6) 02/04/2019 8:20 AM CDT Body Mass Index [...] COVID-19 Vaccine ( - 2023-2 5 season) 2025 Meningococcal B Vaccine Aged Out No l [...] 3:18 PM 02/05/2019 2:09 PM Care Teams Top Distribution Executive Relationship Specialty Start Date End Date New Referring, Provider PCP - General UNKNOWN PHYSICIAN SPECIALTY 02/02/19
[2025-08-15 10:51] VITALS: BP 142/81; PULSE 80; RESP 18; TEMP 36.6; O2SAT 96
--- NOTE | 2025-08-15 11:10 | ECG_ITS ---
Test Date: 2025-08-15 11:19:23 Measurements Intervals [place] Rate: 73 P: 18 ND: 141 QRS: 16 QRSD: 94 T: 24 QT: 387 QTc: 428 Interpretive Statements SINUS RHYTHM No previous ECG available for comparison Electronically Signed On 08-15-2025 20:49:21 CDT by Drew Alejo D.O
== END 2025-08-15 11:34 | disposition short-term general hospital (02) ==
PROVIDERS: Emergency Provider Nurse Practitioner Family; PCP Emergency Medicine
DX: M79.602 Pain in left arm (principal); R42 Dizziness and giddiness; M54.2 Cervicalgia; K21.9 Gastro-esophageal reflux disease without esophagitis; F32.9 Major depressive disorder, single episode, unspecified
CPT/HCPCS: 93005; 99213; G0463

== ENCOUNTER 2025-08-15 11:46 | Emergency (ER) | payer OTHER, SELFPAY ==
--- OUTSIDE RECORDS SUMMARY | 2024-07-03 08:40 | XMS_ITS | Continuity of Care Document ---
Author Organization [facility] Address [address] [place] [address] Phone Care Team Providers Care Environmental Remediation Specialist Name Role Phone Michael SHENAArabella Unavailable Unavailable Allergies, Adverse Reactions, Alerts Substance Reaction Status Criticality No Known Allergies Active No Inform ation Medications Medication Instructions Dosage Effective Dates (start - stop) Status Comments Zoloft 20 mg/mL oral concentrate take 5 milliliter by oral route every day and mix with 4 oz. (1/2 cup) of water, jorge prudencio, lemon/[place] soda, lemonade or orange juice ONLY 100 MG - Active losartan 50 mg tablet take 1 tablet by o ral route every day 50 MG - Active Ostera 500 unit-500 mcg-90 mg-370 mg tablet - Active Procedures Procedure Date Simpl Repr Face/mucous; 2.5/le 24 Surgical Trays Offic/outpt E&m [facility] 4 Services provided in an urgent care cent er Td Preservative Free 7yrs And Older Immuniz Admin; 1/combo Vacc/to 24 Advance Directives Directive Yes / No Effective Date File Name No Information Encounters Encounter Description Practice Location Reason(s) For Visit Diagnoses Date Provider Providers Copied on Encounter Offic/outpt E&m [facility], [address], [place], [place], [id number] , [place] tel:[phone] [facility] Laceration (chief complaint) Lip laceration, initial encounterContusion of right knee, initial encounterAbrasion of nose, initial encounterEncounter for immunization Michael CHATTERJEE Arabella. [address] [place], [address], . tel:[phone] Family History Family Member Type Diagnosis Age At Onset Family h/o Problem Diabetes Family h/o Problem ALS Immunizations Vaccine Date Status Comments Td, preservative free, (7 yr s and older) completed Source: Source Unspe cified Td, preservative free, (7 yr s and older) completed Source: Source Unspe cified Payers Payer name Insurance type Covered republican ID Authoriza tion(s) No Information Social History [...] Mental Status Date Cognitive Assessment Orientation - [place] ed to time, place, person, situation. Patient Care Teams Name Effective Dates (start - stop) Status Members No Information
--- NOTE | ~2025-08-15 | XR_ITS ---
Examination: XR chest 2V Clinical History: chest pain Comparison: None Technique: PA and Lateral Findings: Cardiomediastinal silhouette normal size and configuration. Lungs clear. No acute bony abnormality. IMPRESSION: 1. No acute cardiopulmonary findings. Reviewed, dictated and finalized at location R.
--- OUTSIDE RECORDS SUMMARY | 2025-08-15 11:47 | XMS_ITS | Clinical Summary ---
Author Organization 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
[2025-08-15 11:50] VITALS: BP 153/88; PULSE 74; RESP 20; TEMP 36.7; O2SAT 95
--- NOTE | 2025-08-15 11:56 | ECG_ITS ---
Test Date: 2025-08-15 11:55:05 Measurements Intervals [place] Rate: 72 P: 3 MD: 153 QRS: 2 QRSD: 94 T: 12 QT: 399 QTc: 437 Interpretive Statements SINUS RHYTHM MINIMAL VOLTAGE CRITERIA FOR LVH, CONSIDER NORMAL VARIANT Electronically Signed On 08-15-2025 20:49:33 CDT by Drew Alejo D.O
[2025-08-15 11:57] VITALS: PULSE 72
[2025-08-15 12:22] VITALS: BP 152/86; PULSE 72; RESP 17; O2SAT 97
[2025-08-15] MEDS: KETOROLAC 30 MG/ML VIAL (*BKC) IV PUSH (12:24)
--- NOTE | 2025-08-15 12:26 | ED_ITS ---
HPI - Dizziness General Chief Complaint: Dizziness Stated Complaint: dizziness Time Seen by Provider: 08/15/25 11:52 Source: patient and family Mode of arrival: ambulatory Limitations: no limitations History of Present Illness HPI Narrative: This is a 50-year-old female with history of hypertension who presents to the ED for left arm pain, left neck pain, dizziness. Patient states for the past 4 days, she has been having these symptoms. They are intermittent in nature. She was seen at urgent care for this and advised to come to the ED for further evaluation. No history of diabetes that she is aware of. No prior cardiac history. Denies chest pain, shortness of breath, nausea, vomiting. Reports the dizziness is worse when lying on her right side. She does not have any dizziness at this time. Related Data Home Medications ?Medication ?Instructions ?Recorded ?Confirmed ?Last Taken ?Type cholecalciferol (vitamin D3) 25 25 mcg PO DAILY 08/15/25 02/21/24 History mcg (1,000 unit) tablet (Vitamin D3) vibegron 75 mg tablet (Gemtesa) mg 08/15/25 Unknown H istory Allergies Allergy/AdvReac Type Severity Reaction Status Date / Time No Known Allergies Allergy Verified 08/15/25 11:58 Review of Systems 2 Review of Systems: Gen.: Denies fevers or chills Eyes: Denies eye pain or visual change ENT: Denies congestion Respiratory: Denies shortness of breath or cough CV: Denies chest pain or palpitations GI: Denies abdominal pain nausea, emesis or diarrhea denies burning, urgency, frequency or hematuria Musculoskeletal: Denies back pain or muscle pain Neuro: Denies numbness, tingling, weakness or focal weakness Skin: Denies rash Except as documented, all other systems reviewed and negative [facility] Past Medical History Medical History Chondromalacia Right knee pain Elevated blood pressure reading in office without diagnosis of hypertension 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, 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, 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 Back pain Urinary incontinence Foot pain Sinusitis Other screening mammogram Depression GERD (gastroesophageal reflux disease) Abdominal pain Numbness and tingling in left hand Wrist pain, left Depression Fatigue Surgical History Surgical History H/O: hysterectomy Social History Social History Smoking status: Never smoker Alcohol intake: never Substance use: never Substance use type: does not use Do You Feel Safe in your Home?: Yes Lack of Transportation: No Lack of Food: Never True Current Housing: I Have Housing Concerned About Future Housing: No Difficulty Paying Gas/Electric Bills: No Difficulty Paying for Meds: No Currently Unemployed: No Education: Bachelor's Degree Difficulty w/ Childcare or Family Care: No Living arrangements: with family Gender identity (if verbalized by the patient): Female Spiritual care concerns: No Course Vital Signs Vital signs: Vital Signs Temperature 98.0 F 08/15/25 11:50 Pulse Rate 74 08/15/25 11:50 Respiratory Rate 20 08/15/25 11:50 Blood Pressure 153/88 H 08/15/25 11:50 Pulse Oximetry 95 08/15/25 11:50 Oxygen Delivery Room Air 08/15/25 11:50 Temperature 98.0 F 08/15/25 11:50 Pulse Rate 67 08/15/25 14:59 Respiratory Rate 18 08/15/25 14:59 Blood Pressure 141/80 H 08/15/25 14:59 Pulse Oximetry 99 08/15/25 14:59 Oxygen Delivery Room Air 08/15/25 11:50 MDM - Dizziness MDM Narrative Medical decision making narrative: 50-year-old female presenting for neck pain/arm pain and dizziness. On initial evaluation, patient was in no acute distress, afebrile will hemodynamically stable. Had heart and lungs clear. She had some tenderness to palpation over the paraspinal thoracic musculature on the left as well as to the left posterior upper arm. CBC and CMP were without significant abnormalities. Troponin negative. EKG showed no concerning findings. Chest x-ray showed no acute process. Patient was given Toradol, Flexeril with minimal improvement of her symptoms. She was subsequently given Valium with some [id number] improvement. Suspect the patient does have a cervical/thoracic muscle spasm causing her symptoms. She was given prescriptions for Flexeril and Lidoderm. She is educated on Tylenol and ibuprofen use. She is advised follow-up with her PCP in the next couple days for re-evaluation. Patient and family were agreeable to this plan. Given strict return precautions. Differential Diagnosis Differential diagnosis: Likely benign paroxysmal positional vertigo, orthostatic hypotension and other (ACS, msk strain, cervical muscle strain/spasm) Medical Records Attestation: I reviewed the patient's medical records. Lab Data Attestation: I reviewed the patient's lab results. 08/15/25 12:22 08/15/25 12:22 Labs: Lab Results 08/15/25 Range/Units 12:22 WBC 8.2 (4.5-10.0) K/mm3 RBC 4.56 (4.2-5.4) M/mm3 Hgb 12.5 (12.0-15.0) g/dL Hct 38.2 (37.0-47.0) % MCV 83.8 (80-100) fl MCH 27.4 (26-34) pg MCHC 32.7 (32-36) g/dl RDW 13.7 (11.5-14.5) % Plt Count 319 (150-375) k/mm3 MPV 9.8 (7.4-10.4) fl Immature Gran % (Auto) 0.4 (0-0.5) % Neut % (Auto) 57.7 (45.5-73.1) % Lymph % (Auto) 33.9 (18.3-44.2) % [facility] % (Auto) 5.5 (2.6-8.5) % Eos % (Auto) 2.1 (0-4.4) % Baso % (Auto) 0.4 (0.2-1.2) % Lymph # (Auto) 2.78 (0.9-3.2) K/mm3 [facility] # (Auto) 0.5 (0.1-0.6) K/mm3 Eos # (Auto) 0.2 (0-0.3) K/mm3 Baso # (Auto) 0.0 (0.0-0.1) K/mm3 Abs Immat Gran (auto) 0.03 (0.00-0.031) K/mm3 Absolute Neuts (auto) 4.7 (1.3-6.7) K/mm3 Absolute Nucleated RBC 0.000 (0.0-0.012) K/mm3 Nucleated RBC % 0.0 (0.0-0.2) % Sodium 138 (137-145) mmol/L Potassium 4.2 (3.4-5.0) mmol/L Chloride 104 (98-107) mmol/L Carbon Dioxide 24 (22-30) mmol/L Anion Gap 10 (4-12) mmol/L BUN 14 (7-17) mg/dL Creatinine 0.97 (0.7-1.0) mg/dL Estim Creat Clear Calc 75 ml/min Estimated GFR 60 (59 - ) Glucose 98 (65-110) mg/dL Calcium 9.3 (8.4-10.2) mg/dL Total Bilirubin 0.3 (0.2-1.3) mg/dL AST 35 (14-36) U/L ALT 31 (6-35) U/L Alkaline Phosphatase 112 (38-126) U/L Troponin I < 0.012 (0.000-0.034) ng/mL Total Protein 7.7 (6.3-8.2) g/dL Albumin 4.3 (3.5-5.1) g/dL Imaging Data Attestation: I personally reviewed and interpreted this imaging study as follows: (I reviewed the radiologist's interpretations) Radiologist's impression: Impressions Chest X-Ray 08/15/25 13:10 IMPRESSION: 1. No acute cardiopulmonary findings. ECG Data EKG #1: Attestation: I personally reviewed and interpreted this ECG as follows: ECG completion date: 08/15/25 ECG completion time: 11:56 Prior ECG tracings: available for review Interpretation: Normal sinus rhythm rate of 72, normal axis, normal intervals, no acute ST or T- wave changes. Comparison from earlier in the day: No significant change. Discharge Plan Discharge Clinical Impression: Muscle spasm Patient Disposition: Home Condition: Stable Instructions: Antibiotic Form, Muscle Spasm (ED) Additional Instructions: Labs, EKG, chest x-ray were all reassuring and not indicative of any heart damage at this time. Take Flexeril and Lidoderm as prescribed. He may take Tylenol and ibuprofen for your pain/discomfort. Follow up with her PCP in the next week for re-evaluation. Return the ED for any new or worsening symptoms. For pain, discomfort or temperature greater than or equal to 100.8 ?F please alternate the following 2 medications as needed. First medication- acetaminophen/Tylenol- 1000mg every 6-8 hours as needed for above indications. Second medication- ibuprofen/Motrin-600mg every 6-8 hours as needed for above indication. Patient Language: Welsh Prescriptions: New cyclobenzaprine 10 mg tablet 10 mg PO BID PRN (Reason: muscle spasm) Qty: 30 0RF lidocaine [Lidoderm] 5 % adhesive patch,medicated 1 patch topical DAILY Qty: 15 0RF Rx Instructions: leave on most painful area for up to 12 hrs No Action Gemtesa 75 mg tablet pantoprazole 40 mg tablet,delayed release (DR/EC) 40 mg PO BID Qty: 180 2RF cholecalciferol (vitamin D3) [Vitamin D3] 25 mcg (1,000 unit) Tablet 25 mcg PO DAILY losartan 100 mg tablet See Rx Instructions .ROUTE .COMPLEX Qty: 90 2RF Dose Instruction: TAKE 1 TABLET BY MOUTH DAILY Rx Instructions: TAKE 1 TABLET BY MOUTH DAILY sertraline 50 mg tablet See Rx Instructions .ROUTE .COMPLEX Qty: 90 2RF Dose Instruction: TAKE 1 TABLET BY MOUTH DAILY Rx Instructions: TAKE 1 TABLET BY MOUTH DAILY Zepbound 10 mg/0.5 mL pen injector 10 mg subcut WEEKLY Qty: 2 0RF Follow-up/Referrals: Masoud Santos MD [Primary Care Provider, Internal Medicine]
[2025-08-15 12:32] LABS: Hematocrit 38.2 % (37.0-47.0); Hemoglobin 12.5 g/dL (12.0-15.0); Immature Granulocyte Percent A 0.4 % (0-0.5); Lymphocytes Absolute Auto 2.78 K/mm3 (0.9-3.2); Mean Corpuscular HGB Conc 32.7 g/dl (32-36); Mean Corpuscular Hemoglobin 27.4 pg (26-34); Mean Corpuscular Volume 83.8 fl (80-100); Nucleated Red Blood Cells Absolute Auto 0.000 K/mm3 (0.0-0.012); Nucleated Red Blood Cells Perc 0.0 % (0.0-0.2); Platelet Count Result 319 k/mm3 (150-375); Red Blood Count 4.56 M/mm3 (4.2-5.4); White Blood Count 8.2 K/mm3 (4.5-10.0)
[2025-08-15] MEDS: CYCLOBENZAPRINE HCL 10 MG TABLET PO (12:43)
[2025-08-15] MEDS: LIDOCAINE 5% PATCH 1 PATCH TRANSDERM (12:43)
[2025-08-15 12:45] LABS: Alanine Aminotransferase 31 U/L (6-35); Albumin Level 4.3 g/dL (3.5-5.1); Alkaline Phosphatase 112 U/L (38-126); Anion Gap 10 mmol/L (4-12); Aspartate Amino Transferase 35 U/L (14-36); Bilirubin,Total 0.3 mg/dL (0.2-1.3); Blood Urea Nitrogen 14 mg/dL (7-17); Calcium 9.3 mg/dL (8.4-10.2); Carbon Dioxide 24 mmol/L (22-30); Chloride 104 mmol/L (98-107); Estimated CRCL calculation 75 ml/min; Estimated Glomerular Filt Rate 60; Glucose 98 mg/dL (65-110); Potassium 4.2 mmol/L (3.4-5.0); Sodium 138 mmol/L (137-145); Total Protein 7.7 g/dL (6.3-8.2)
[2025-08-15 12:52] LABS: Troponin I < 0.012 ng/mL (0.000-0.034)
[2025-08-15] MEDS: diazePAM INJ (*CRX) 10 MG/2 ML SYRINGE 5 MG IV PUSH (13:51)
[2025-08-15 14:59] VITALS: BP 141/80; PULSE 67; RESP 18; O2SAT 99
== END 2025-08-15 15:01 | disposition home or self-care (01) ==
PROVIDERS: Emergency Provider Student in an Organized Health Care Education/Training Program; PCP Emergency Medicine
DX: R25.2 Cramp and spasm (principal); F32.A Depression, unspecified; K21.9 Gastro-esophageal reflux disease without esophagitis
CPT/HCPCS: 36415; 71046; 80053; 84484; 85025; 93005; 96374; 96375; 99284; A9270; J1885; J3360

== ENCOUNTER 2025-08-26 13:41 | Outpatient (CLI) | payer OTHER, SELFPAY ==
--- NOTE | ~2025-08-26 | MR_ITS ---
EXAMINATION: MR cervical spine wo con DATE: 08/26/2025 14:06 INDICATION: Cervical radiculopathy. Neck pain. TECHNIQUE: Magnetic resonance imaging (MRI) of the cervical spine was performed without intravenous contrast. COMPARISON: None FINDINGS: There is kyphosis of cervical spine. Vertebral body heights are normal. There is moderately decreased disc height at C4-C5 and severely decreased disc height at C5-C6 and C6-C7. The spinal cord signal intensity is normal. The following disc levels are specifically discussed: C2-C3: The disc does not extend beyond the endplate margin. There is no uncovertebral joint osteoarthritis. There is moderate bilateral facet joint osteoarthritis. There is no neural foraminal stenosis. There is no central canal stenosis. C3-C4: There is a central extrusion. There is mild bilateral uncovertebral joint osteoarthritis. There is severe bilateral facet joint osteoarthritis. There is mild bilateral neural foraminal stenosis. There is mild central canal stenosis. C4-C5: The disc is bulging. There is severe bilateral uncovertebral joint osteoarthritis. There is moderate bilateral facet joint osteoarthritis. There is moderate bilateral neural foraminal stenosis. There is mild central canal stenosis. C5-C6: The disc is bulging. There is severe bilateral uncovertebral joint osteoarthritis. There is mild bilateral facet joint osteoarthritis. There is moderate right and severe left neural foraminal stenosis. There is moderate central canal stenosis with ventral and dorsal indentation of the spinal cord. C6-C7: There is a right central extrusion. There is severe bilateral uncovertebral joint osteoarthritis. There is mild bilateral facet joint osteoarthritis. There is mild bilateral neural foraminal stenosis. There is mild central canal stenosis with ventral indentation of the spinal cord. C7-T1: There is a right central extrusion. There is no uncovertebral joint osteoarthritis. There is severe bilateral facet joint osteoarthritis. There is mild bilateral neural foraminal stenosis. There is no central canal stenosis. IMPRESSION: 1. Severe cervical spondylosis. Reviewed, dictated and finalized at location E.
== END 2025-08-26 13:42 | disposition home or self-care (01) ==
LOC: MICIMG 13:41
PROVIDERS: PCP Emergency Medicine; Visit Provider Emergency Medicine
DX: M47.812 Spondylosis without myelopathy or radiculopathy, cervical region (principal)
CPT/HCPCS: 72141

== ENCOUNTER 2025-11-03 16:10 | Outpatient (CLI) | payer OTHER, SELFPAY ==
--- NOTE | ~2025-11-03 | MM_ITS ---
EXAMINATION: MM screening julianna BI w ousmane HISTORY: Screening TECHNIQUE: Craniocaudal and mediolateral oblique 3-D tomosynthesis images were obtained and synthetic 2-D images were generated. CAD analysis was submitted and interpreted. COMPARISON: Comparison to multiple prior studies sequentially, with oldest reviewed study dated , 02/26/2014 BREAST PARENCHYMAL COMPOSITION: Not Dense: There are scattered areas of fibroglandular density. FINDINGS: There is no evidence of suspicious mass, calcification, or architectural distortion to suggest malignancy in either breast. IMPRESSION: 1. No mammographic evidence of malignancy. 2. Recommend routine screening mammography in one year. BI-RADS Category 1: Negative Reviewed, dictated and finalized at location A. 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
== END 2025-11-03 16:11 | disposition home or self-care (01) ==
LOC: MICIMG 16:10
PROVIDERS: PCP Emergency Medicine; Visit Provider Emergency Medicine
DX: Z12.31 Encounter for screening mammogram for malignant neoplasm of breast (principal)
CPT/HCPCS: 77063; 77067

== ENCOUNTER 2025-11-15 07:50 | Outpatient (CLI) | payer OTHER, SELFPAY ==
--- OUTSIDE RECORDS SUMMARY | 2025-11-15 07:56 | XMS_ITS | Clinical Summary ---
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
--- OUTSIDE RECORDS SUMMARY | 2025-11-15 07:56 | XMS_ITS | Clinical Summary ---
Author Organization [facility] Address [address] [place] [address] Care Team Providers Care Cadd Technician Name Role Phone New Referring, Provider Primary [...] of 2) 2023 COVID-19 Vaccine ( - 2024-2 6 season) 2025 Influenza Adult (#1) 2025 Hepatitis A Vaccines Aged Out No long er eligible based on patient's age to complete this topic Meningococcal B Vaccine Aged Out No l [...] 3:18 PM 02/05/2019 2:09 PM Care Teams Cadd Technician Relationship Specialty Start Date End Date New Referring, Provider PCP - General UNKNOWN PHYSICIAN SPECIALTY 02/02/19
[2025-12-07 11:22] VITALS: BMI 37.1
--- NOTE | 2025-12-07 11:22 | WPDHOMESLEEP ---
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 Back pain Urinary incontinence Foot pain Sinusitis Other screening mammogram Depression GERD (gastroesophageal reflux disease) Abdominal pain Numbness and tingling in left hand Wrist pain, left Depression Fatigue Surgical History Surgical History H/O: hysterectomy Social History Social History Smoking status: Never smoker Alcohol intake: never Substance use: never Substance use type: does not use Lack of Transportation: No Lack of Food: Never True Current Housing: I Have Housing Concerned About Future Housing: No Difficulty Paying Gas/Electric Bills: No Difficulty Paying for Meds: No Currently Unemployed: No Education: Bachelor's Degree Difficulty w/ Childcare or Family Care: No Living arrangements: with family Gender identity (if verbalized by the patient): Female Spiritual care concerns: No Medications Home Medications ?Medication ?Instructions ?Recorded ?Confirmed ?Type cholecalciferol (vitamin D3) 25 25 mcg PO DAILY 02/13/24 10/12/25 History mcg (1,000 unit) tablet (Vitamin D3) losartan 100 mg tablet See Rx Instructions .Route 07/05/25 10/12/25 Rx .COMPLEX #90 tabs sertraline 50 mg tablet See Rx Instructions .Route 07/05/25 10/12/25 Rx .COMPLEX #90 tabs vibegron 75 mg tablet (Gemtesa) mg 08/15/25 10/12/25 History pantoprazole 40 mg tablet,delayed See Rx Instructions .Route 11/09/25 Rx release .COMPLEX #180 tabs tirzepatide (weight loss) 12.5 12.5 mg (0.5 mL) subcut WEEKLY #2 11/15/25 Rx mg/0.5 mL subcutaneous pen mL injector (Zepbound) Sleep Procedure The sleep study was completed using [employer] a technically adequate device with seven channels: peripheral arterial tone, actigraphy, body position, snore, respiratory movement, pulse oximetry, sleep staging, and heart rate. Prior to using the device, the patient received verbal and written instructions for its application and was provided with the help desk phone number for additional telephonic instruction with 24-hour availability of qualified personnel to answer questions. Sleep Architecture The total recording time is 9 hrs, 48 min. The total sleep time is 9 hrs, 12 min. Sleep latency is 17 minutes. REM latency is 41 minutes. The patient had 5 episodes of waking. Sleep architecture shows 21.6% deep sleep, 59.2% light sleep, and 19.1% stage REM. The patient spent 19.5% of total sleep time in the supine position. Sleep efficiency was 94%. Respiratory Analysis The overall AHI (pAHI 3%:) is 12.2. The central AHI is 0.9. The AHI was 7.4 in NREM and 32.5 in REM sleep. The AHI was 16.2 in Supine and 10.1 in Non-supine sleep. Percent of Bebeto Ambriz respirations is 0%. Oximetry Data The oxygen desaturation index (JORI 4%:) is 7.9. The mean saturation is 94%, and the lowest saturation is 79%. Time spent with saturation < 88% is 5.3 minutes. Snoring Profile Snoring average intensity is 47 dB. The patient snored above 45 decibels for 226.5 minutes, 41.0% of sleep time. Cardiac Profile The average pulse rate is 76 beats per minutes. The lowest pulse rate is 59 bpm. The highest pulse is 98 beats per minute. Cardiac rhythm analysis in sleep does not show atrial fibrillation. Assessment and Plan Assessment and Plan (1) Obstructive sleep apnea: Code(s): G47.33 - Obstructive sleep apnea (adult) (pediatric) Status: Acute Data The data obtained during this sleep study is adequate for interpretation. Certification This sleep study has been reviewed by a board certified sleep medicine physician.
== END 2025-11-16 13:40 | disposition home or self-care (01) ==
PROVIDERS: PCP Emergency Medicine; Visit Provider Emergency Medicine
DX: G47.33 Obstructive sleep apnea (adult) (pediatric) (principal)
CPT/HCPCS: 95800